=== PATIENT | male | born 1950 | race Caucasian/White ===

== ENCOUNTER → 2018-03-16 | Outpatient (CLI) | payer MEDICARE ==
[~2018-03-16] MED LIST: CHOL500016 PO; EZET10TA18 PO; RAMI10CA36 PO; SIMV10TA3 PO
--- NOTE | 2018-03-16 11:49 | DIREP ---
PROCEDURE:MRI UPPER EXTREM JOINT W O CON RIGHT COMPARISON:None. INDICATIONS:M25.511 PAIN IN RIGHT SHOULDER TECHNIQUE:A variety of imaging planes and parameters were utilized for visualization of suspected pathology. Images were performed without contrast. FINDINGS: ROTATOR CUFF: Focal high-grade tendinosis and bursal sided partial-thickness tearing of supraspinatus , encompassing 75% of tendon thickness. Sfxf-vx-fstrftaq tendinosis of superior most fibers of sub scapularis. Infraspinatus within normal limits. cuff is intact. No muscle atrophy. BICEPS TENDON: Normal intraarticular and extra-articular biceps. LABRUM :Tearing of the superior labrum extending into the anterior equator with high signal also undercutting the insertion of the biceps anchor. Mild to moderate glenohumeral osteoarthritis.. AC JOINT: There is subclavicular spur exerting moderate mass effect on the myotendinous junction of supraspinatus. Advanced acromioclavicular osteoarthrosis. No lateral tilt. Type I acromion. BONES:Normal OTHER:Trace fluid in the subacromial subdeltoid bursa. No loose bodies. CONCLUSION: 1. Advanced tendinosis and bursal sided fraying of leading edge fibers of supraspinatus without full-thickness rotator cuff tear. Partial thickness bursal sided tearing encompasses approximately 75% of the tendon thickness. 2. Wupq-bh-dxjnwbhc subscapularis tendinosis. 3. Tearing of the superior labrum extending into the anterior equator at the bicipital anchor. 4. Trace fluid in subacromial subdeltoid bursa. Dictated by: Talon Tejada DO on 03/16/2018 at 11:42 AM
== END | disposition home or self-care (01) ==
LOC: RAD 09:36
PROVIDERS: ATTEND Nurse Practitioner Family
DX: S43.491A Other sprain of right shoulder joint, initial encounter (principal); M75.81 Other shoulder lesions, right shoulder; M19.011 Primary osteoarthritis, right shoulder; X58.XXXA Exposure to other specified factors, initial encounter; Y93.89 Activity, other specified; Y92.89 Other specified places as the place of occurrence of the external cause; Y99.8 Other external cause status
CPT/HCPCS: 73221-RT

== ENCOUNTER → 2021-05-27 | Outpatient (CLI) | payer MEDICARE ==
[~2021-05-27] MED LIST changes: +AMLO-169 PO; +ASPI-667 PO; +ATOR20TA PO; -EZET10TA18 PO; +EZET10TA20 PO; +LORA10TA75 PO; +MULT-230 PO; +SIMV10TA18 PO; -SIMV10TA3 PO; +[UNRECOGNIZED DRUG - OTHER] PO
[2021-05-27 14:50] LABS: MEAN CORP HGB 31.7 pg (26-34); RED CELL DISTRIBUTION WIDTH 12.6 % (11.5-14.5)
[2021-05-27 15:45] LABS: CARBON DIOXIDE 26.6 mmol/L (20.0-32)
== END | disposition home or self-care (01) ==
LOC: NPLAB 13:45
PROVIDERS: ATTEND Specialist
DX: I11.0 Hypertensive heart disease with heart failure (principal); I50.32 Chronic diastolic (congestive) heart failure; E78.5 Hyperlipidemia, unspecified; E55.9 Vitamin D deficiency, unspecified
CPT/HCPCS: 36415; 80053; 80061; 82306; 84436; 84439; 84443; 84479; 85027; 86140

== ENCOUNTER 2021-06-09 10:50 | Inpatient (IN) | payer MEDICARE ==
[2021-06-04 16:07] VITALS: BP 120/81
[2021-06-04 16:33] LABS: BASOPHIL % 0.5 % (0.0-0.2); EOSINOPHIL # 0.1 10^3/uL (0.0-0.2); EOSINOPHIL % 1.5 % (0.0-5.0); LYMPHOCYTES # 2.25 10^3/uL1 (1.0-4.8); LYMPHOCYTES % 26.5 % (24.0-44.0); MEAN CORP HGB 31.7 pg (26-34); MONOCYTES # 0.6 10^3/uL (0.3-0.8); MONOCYTES % 7.4 % (5.0-12.0); NEUTROPHIL # 5.4 10^3/uL (1.8-7.7); NEUTROPHILS % 63.7 % (41.0-85.0); PLATELET COUNT 290 10^3/uL (150-400); RED CELL DISTRIBUTION WIDTH 12.4 % (11.5-14.5)
[2021-06-04 16:48] LABS: CARBON DIOXIDE 24.5 mmol/L (20.0-32)
[2021-06-04 17:00] LABS: BILIRUBIN,URINE NEGATIVE (NEGATIVE); UROBILINOGEN,URINE 0.2 E.U./dL (0.2)
[2021-06-09] VITALS (16 sets, daily range): BP systolic 92–145; BP diastolic 53–90
[~2021-06-09] VITALS: Ht 170.2 cm; Wt 81.6 kg
[~2021-06-09 10:50] MED LIST changes: +ANCEF ONE; +ATIVAN ONE; +BACTROBAN OINTMENT TP ONE; +CELEBREX PO ONE; +DECADRON IV ONE; +DEXAMETHASONE 10 MG/ML VIAL ONE; +DIPRIVAN 100 ML IV ONE; +DURAMORPH ONE; +EPINEPHrine ONE; +EXPAREL 266 MG/20 ML VIAL IJ ONE; +HESPAN 6%-NS INFUSION BAG 500 ML IV ONE; +LACTATED RINGERS 1,000 ML IV SCH; +NEURONTIN PO ONE; +NS 100ML 100 ML IV ONE; +NS 250ML 250 ML ONE; +NS 3000ML IRR IR ONE; +OFIRMEV IV ONE; +SENSORCAINE 0.5% VIAL ONE; +SENSORCAINE-MPF 0.25% VIAL ONE; +SODIUM CHLORIDE IRR BOTTLE IR ONE; +SUBLIMAZE ONE; +TORADOL ONE; +TRANEXAMIC ACID ONE; +TRANSDERM-SCOP TD ONE; +ULTRAM PO ONE; +VASOPRESSIN ONE; +WATER ONE
[2021-06-09] MEDS ORDERED: ZOFRAN IV PRN (11:00)
[2021-06-09] MEDS ORDERED: TORADOL IV PRN (11:00)
[2021-06-09] MEDS ORDERED: CEPACOL SORE THROAT LOZENGE MM PRN (11:00)
[2021-06-09] MEDS ORDERED: ULTRAM PO PRN (11:00)
[2021-06-09] MEDS ORDERED: CLARITIN PO SCH (11:00)
--- NOTE | 2021-06-09 11:02 | PCM.HP ---
History of Present Illness Hx of Present Illness 70 yo male presents with complaints of consistent left knee pain over the past several years. Progressively worsening for the last 6 years. Conservative treatments for knee pain are no longer effective. Patient currently seeking left knee replacement at this time. Past Medical History PMH-Cardiac: (1) Obstructive sleep apnea ICD Code: G47.33 - Obstructive sleep apnea (adult) (pediatric) SNOMED: 58543538 (2) Hypertension Status: Chronic ICD Code: I10 - Essential (primary) hypertension SNOMED: 28423183 Past Surgical History: (1) History of arthroscopic knee surgery Status: Resolved ICD Code: Z98.890 - Other specified postprocedural states SNOMED: 211393445, 636504980 Past Social History PSH:Alcohol: (1) Occasional alcohol consumption Status: Resolved ICD Code: Z78.9 - Other specified health status SNOMED: 151625163 (2) Non-smoker Status: Resolved ICD Code: Z78.9 - Other specified health status SNOMED: 1026216 Travel History EBOLA RISK:Travel to/contact w: No Review of Systems Constitutional: No: Fever, Chills, Sweats, Weakness, Malaise, Other Eyes: No: Pain, Vision change, Conjunctivae inflammation, Eyelid inflammation, Other, Redness ENT: No: Ear pain, Ear discharge, Nose pain, Nose discharge, Nose congestion, Mouth pain, Mouth swelling, Throat pain, Throat swelling, Other Respiratory: No: Cough, Dry, Shortness of breath, SOB with excertion, Wheezing, Hemoptysis, Pleuritic Pain, Sputum, Wheezing, Other Cardiovascular: No: Chest Pain, Palpitations, Orthopnea, Paroxysmal Noc. Dy spnea, Edema, Lt Headedness, Other Gastrointestinal: No: Nausea, Vomiting, Abdominal Pain, Diarrhea, Constipation, Melena, Hematochezia, Other Genitourinary: No Dysuria, No Frequency, No Incontinence, No Hematuria, No Retention, No Other Musculoskeletal: No: other, neck pain, shoulder pain, arm pain, back pain, hand pain, leg pain, foot pain Skin: No: Rash, Lesions, Jaundice, Bruising, Other Neurological: No: Weakness, Numbness, Incoordination, Change in speech, Confusion, Seizures, Other Allergies: Coded Allergies: No Known Allergies (Unverified , 06/04/21) Scheduled Amlodipine Besylate (Amlodipine Besylate), 1 TAB PO DAILY, (Reported) Aspirin (Aspirin), 1 TAB PO DAILY, (Reported) Atorvastatin 20MG (Lipitor 20MG), 1 TAB PO DAILY, (Reported) Cholecalciferol (Vitamin D3) (Vitamin D3), 1 TAB PO DAILY, (Reported) Ezetimibe (Zetia), 10 MG PO DAILY, (Reported) Loratadine (Claritin), 1 TAB PO QD, (Reported) Multivitamin (Daily Vitamin Formula), 1 TAB PO QD, (Reported) Ramipril 10MG (Altace 10MG), 10 MG PO BID, (Reported) [Osteo Move], 1 TAB PO DAILY24, (Reported) Discontinued Medications Simvastatin (Simvastatin), 10 MG PO DAILY, (Reported) Discontinued Reason: No Longer Taking VTE VTE Risk Total Score: >5 VTE Risk Score VTE Risk: Score 0-1 = Low Risk (Aggressive mobilization; early ambulation; no VTE prophylaxis required) Score 2: Moderate Risk (Intermittent/Pneumatic Compression Device OR Lovenox/Heparin/Coumadin) Score 3-4: High Risk (Intermittent/Pneumatic Compression Device AND Lovenox/Heparin/Coumadin) Score > or =5: Highest Risk (Intermittent/Pneumatic Compression Device AND Lovenox/Heparin/Coumadin) VTE VTE Present on Admission: No Currently receiving anticoagul: No VTE Risk Total Score: >5 Exam Vital Signs Vital Signs Date Time Temp Pulse Resp B/P (MAP) Pulse Ox O2 Delivery O2 Flow Rate FiO2 06/09/21 07:40 Room Air 06/09/21 07:40 97.0 95 16 145/90 (108) General Appearance: No acute distress HEENT: Atraumatic Respiratory: Clear to auscultation Cardiovascular: Regular rate, Normal S1, Normal S2 Abdominal: Normal bowel sounds, Soft Extremities: No clubbing Skin: No rash Neuro: Normal gait Psych/Mental Status: Mental status NL Assessment/Plan Assessment/Plan Assessment/Plan Assessment: Osteoarthritis of left knee Plan: Left total knee arthroscopy Problems: (1) Osteoarthritis of left knee ICD Code: M17.12 - Unilateral primary osteoarthritis, left knee SNOMED: [id number] Patient History: Cerebrovascular disorder 33 FATHER, , Age:69 Congestive heart failure G8 SISTER, , Age:55 Hepatitis C G8 BROTHER Hypertension 33 FATHER, , Age:69 G8 BROTHER, , Age:79 No Family History of: Alzheimer's disease Asthma Chronic obstructive pulmonary disease Diabetes insipidus Diabetes mellitus Parkinson's disease Unknown Problem Qualifiers (1) Hypertension: Hypertension type: primary hypertension Qualified Codes: I10 - Essential (primary) hypertension PRAVEEN JOHNSON RN, NEWSP[employer]ER DELIVERY DRIVER Jun 09, 2021 11:02
--- NOTE | 2021-06-09 11:21 | OPH ---
DATE OF SURGERY: 06/09/2021 DICTATOR NAME: Waldemar Cuevas MD PREOPERATIVE DIAGNOSIS: Osteoarthritis of the left knee. POSTOPERATIVE DIAGNOSIS: Osteoarthritis of the left knee. OPERATIVE PROCEDURE: Left total knee arthroplasty using Medacta Sphere knee, size 4 femur, a size 5 tibia, 12 mm insert. All components were cemented. SURGEON: Waldemar Cuevas MD. ANESTHESIA: Spinal. TOURNIQUET TIME: 57 minutes at 300 mmHg. DRAINS: None. BLOOD LOSS: 400 mL DESCRIPTION OF INDICATIONS: The patient is a 70-year-old male with several year history of pain about the left knee, getting progressively worse. He had pain with household ambulation as well as night pain and giving way about the knee. He tried anti-inflammatories in the past as well as cortisone injections, home exercise program and off the shelf bracing. His x-ray showed that he was obub-cj-vuvv medially with osteophytes about the distal femur, both medially and laterally, also had some narrowing about the patellofemoral joint. The patient basically had stage IV, OA about the left knee, was taken to the operating room for left total knee arthroplasty. DESCRIPTION OF PROCEDURE: The patient was placed in the operating table in supine position after being given a spinal anesthetic by the anesthesia department. The left thigh was padded and a tourniquet was applied. The left lower extremity was sterilely prepped and draped. The patient had the leg exsanguinated with an Esmarch and the tourniquet was inflated to 300 mmHg. Knee was flexed to 90 degrees and an anterior incision was made. The incision was taken through the skin and the subcutaneous tissues. Full thickness flaps were developed medially and laterally. Medial parapatellar arthrotomy was performed. The patella was deviated laterally. The capsule and the MCL were released around the posteromedial corner. The patient had an intramedullary drill hole made about the distal femur. Intramedullary freda with the cutting block attached was placed down the shaft of the femur and the cutting block was positioned against the distal femur. Femoral cutting block was pinned into position and then the distal femoral cut was made. It was set at 9 mm and 6 degrees of valgus. Distal femoral cut was made with the power saw. Tibia was subluxed anteriorly. Medial and lateral meniscectomies were completed and the anterior and posterior cruciate ligaments were excised. The patient had the intramedullary drill hole made about the tibia and the freda was placed down the shaft of the tibia. The cutting block was adjusted for posterior slope, varus valgus depth of cut as well as rotation. Once all the parameters were met, the cutting block was pinned into position. The tibial cut was made. The #2 femoral jig was applied and it measured a size 4. The #3 size 4 femoral cutting block was applied and the anterior and posterior femoral cuts were made as were the chamfer cuts. The tibia was sized and it measured a size 5. The size 5 tibial trial was held into position with pins. The patient then had the central drill hole made and then the cruciate punch was used to stabilize the tibial component. Trial reduction was done with a 5 tibia, 4 femur, initially a 10 and subsequently a 12 mm insert. With the 12 mm insert, the patient's knee had full extension with 120 degrees of flexion. He had good medial and lateral stability and good anterior and posterior stability. There was good tracking of the patella, so the peripheral edges of the patella were cauterized and any osteophytes were removed with a rongeur. The patient had the final medial and lateral femoral drill holes made. The femoral sulcus cut was made. The patient then had the trial components removed. The bone ends were copiously irrigated and dried. The size 5 tibial component was cemented into position. The excess cement was removed with curettes. The size 12 tibial insert was impacted and secured with an anterior screw. The size 4 femoral component was likewise cemented. Once all the excess cement was removed and the cement had hardened, then the tourniquet was released. The bleeding was controlled with cautery. The patient's capsule was closed with a #2 PDS in interrupted yinqff-kf-pxgbs manner. The subcutaneous was closed with a barbed 2-0 Monocryl in a running manner and then the skin was closed with nancy. A suction Prevena dressing was applied, reinforced with 4 x 4s, cast padding, and William wrap. The patient was sent to recovery in stable condition. Waldemar Cuevas MD DR: AVIVA MCBRIDE: [phone] RECEIPT: [id number]
[2021-06-09] MEDS: TYLENOL PO SCH ×3 (13:08→23:44)
[2021-06-09] MEDS: ANCEF 2 GM/D5W 50ML IV SCH ×2 (13:08→22:21)
--- NOTE | 2021-06-09 14:12 | NUR ---
DISCHARGE PLANNING CM VISITED WITH PATIENT ABOUT DISCHARGE PLANS AND NEEDS. PATIENT CURRENTLY LIVES@HOME WITH SPOUSE AND WAS IND WITH ALL ADL PRIOR TO SURGERY. PATIENT DENIES ANY DME EQUIPMENT IN THE HOME. PATIENT CURRENTLY SEE'S Tierney HARRIS NP FOR PCP. PATIENT EDUCATED ON RESOURCES AVAILABLE AND AGREEABLE TO OBTAIN WALKER FROM [facility] AND WOULD LIKE TO HAVE [facility] AFTER DISCHARGE. CM FAXED WALKER REFERRAL AND ORDER TO [phone] AND CONFIRMED WALKER REFERRAL RECEIVED BY RYAN [email or web address]. CM CONTACTED [facility] AND SPOKE WITH VALORIE. VALORIE WILL CHECK PATIENT'S INSURANCE TO SEE IF IN NETWORK AND WILL LET CM KNOW. CM FAXED HH REFERRAL TO [facility] @[phone]. FAX CONFIRMATION CONFIRMED COMPLETE.
[2021-06-09] MEDS: LACTATED RINGERS 1,000 ML IV SCH (16:59)
[2021-06-09 18:00] LABS: MEAN CORP HGB 32.2 pg (26-34); RED CELL DISTRIBUTION WIDTH 12.3 % (11.5-14.5)
[2021-06-09] MEDS: ALTACE PO SCH (22:22)
[2021-06-10 00:03] VITALS: BP 113/76
[2021-06-10] MEDS: LACTATED RINGERS 1,000 ML IV SCH (03:29)
[2021-06-10 03:57] VITALS: BP 128/65
[2021-06-10 04:59] LABS: MEAN CORP HGB 33.2 pg (26-34); RED CELL DISTRIBUTION WIDTH 12.4 % (11.5-14.5)
[2021-06-10] MEDS: ANCEF 2 GM/D5W 50ML IV SCH (06:24)
[2021-06-10] MEDS: TYLENOL PO SCH ×4 (06:25→23:08)
--- NOTE | 2021-06-10 07:00 | NUR ---
Per ER report prior to transfer to [facility] unit, NGT was attempted to be placed x2 unsuccessfully. Patient reports hx of deviated septum and nasal fracture in past years. Once transferred, I attempted once more in [facility] unit unsuccessfully to place NG tube. Attempted to reach television maintenance man physician but was unable to reach at [phone]. Information passed off to day shift RN who states he will communicate with on-coming shift physician on what next steps will be.
[2021-06-10 08:37] VITALS: BP 101/64
--- NOTE | 2021-06-10 08:50 | PRM.PN ---
Subjective Subjective Date: Jun 10, 2021 Time: 08:49 Subjective Pain ok Stood beside bed yesterday VSS NVM+ HGB 11.4 Postop anemia from acute surgical blood loss expected Start PT DC tramaine Patient History: Cerebrovascular disorder 33 FATHER, , Age:69 Congestive heart failure G8 SISTER, , Age:55 Hepatitis C G8 BROTHER Hypertension 33 FATHER, , Age:69 G8 BROTHER, , Age:79 No Family History of: Alzheimer's disease Asthma Chronic obstructive pulmonary disease Diabetes insipidus Diabetes mellitus Parkinson's disease Unknown VTE VTE Risk Total Score: >5 VTE Risk Score VTE Risk: Score 0-1 = Low Risk (Aggressive mobilization; early ambulation; no VTE prophylaxis required) Score 2: Moderate Risk (Intermittent/Pneumatic Compression Device OR Lovenox/Heparin/Coumadin) Score 3-4: High Risk (Intermittent/Pneumatic Compression Device AND Lovenox/Heparin/Coumadin) Score > or =5: Highest Risk (Intermittent/Pneumatic Compression Device AND Lovenox/Heparin/Coumadin) Review of Systems Constitutional: No: Fever, Chills, Sweats, Weakness, Malaise, Other Eyes: No: Pain, Vision change, Conjunctivae inflammation, Eyelid inflammation, Other, Redness ENT: No: Ear pain, Ear discharge, Nose pain, Nose discharge, Nose congestion, Mouth pain, Mouth swelling, Throat pain, Throat swelling, Other Respiratory: No: Cough, Dry, Shortness of breath, SOB with excertion, Wheezing, Hemoptysis, Pleuritic Pain, Sputum, Wheezing, Other Cardiovascular: No: Chest Pain, Palpitations, Orthopnea, Paroxysmal Noc. Dyspnea, Edema, Lt Headedness, Other Gastrointestinal: No: Nausea, Vomiting, Abdominal Pain, Diarrhea, Constipation, Melena, Hematochezia, Other Genitourinary: No Dysuria, No Frequency, No Incontinence, No Hematuria, No Retention, No Other Musculoskeletal: No: other, neck pain, shoulder pain, arm pain, back pain, hand pain, leg pain, foot pain Skin: No: Rash, Lesions, Jaundice, Bruising, Other Neurological: No: Weakness, Numbness, Incoordination, Change in speech, Confusion, Seizures, Other Allergies: Coded Allergies: No Known Allergies (Unverified , 06/04/21) Scheduled Amlodipine Besylate (Amlodipine Besylate), 1 TAB PO DAILY, (Reported) Aspirin (Aspirin), 1 TAB PO DAILY, (Reported) Atorvastatin 20MG (Lipitor 20MG), 1 TAB PO DAILY, (Reported) Cholecalciferol (Vitamin D3) (Vitamin D3), 1 TAB PO DAILY, (Reported) Ezetimibe (Zetia), 10 MG PO DAILY, (Reported) Loratadine (Claritin), 1 TAB PO QD, (Reported) Multivitamin (Daily Vitamin Formula), 1 TAB PO QD, (Reported) Ramipril 10MG (Altace 10MG), 10 MG PO BID, (Reported) [Osteo Move], 1 TAB PO DAILY24, (Reported) Discontinued Medications Simvastatin (Simvastatin), 10 MG PO DAILY, (Reported) Discontinued Reason: No Longer Taking Objective Vitals and I/O Vital Sign - Last 24 Hours 06/09/21 06/09/21 06/09/21 06/09/21 10:48 10:48 10:55 11:00 Temp 97.0 Pulse 87 85 87 Resp 16 16 16 B/P (MAP) 92/55 (67) 97/53 (68) 103/56 (72) Pulse Ox 98 98 98 O2 Delivery Mask Mask Mask O2 Flow Rate 8 8 8 8 06/09/21 06/09/21 06/09/21 06/09/21 11:05 11:10 11:15 11:20 Pulse 86 86 100 100 Resp 16 16 16 16 B/P (MAP) 104/61 (75) 106/59 (75) 120/59 (79) 124/75 (91) Pulse Ox 97 98 95 97 O2 Delivery Mask Mask Mask Mask O2 Flow Rate 8 8 5 5 06/09/21 06/09/21 06/09/21 06/09/21 11:25 11:30 11:35 11:40 Temp 97.2 Pulse 100 98 99 99 Resp 16 16 16 16 B/P (MAP) 132/78 (96) 124/56 (78) 114/72 (86) 105/76 (86) Pulse Ox 94 93 93 93 O2 Delivery Room Air Nasal Canula Nasal Canula Nasal Canula O2 Flow Rate 2 2 2 06/09/21 06/09/21 06/09/21 06/09/21 11:45 11:55 12:48 12:49 Temp 98.2 Pulse 93 99 Resp 16 18 B/P (MAP) 119/77 (91) 129/74 (92) Pulse Ox 92 93 O2 Delivery Nasal Canula Nasal Cannula O2 Flow Rate 2 2 2.00 06/09/21 06/09/21 06/09/21 06/09/21 13:30 15:51 16:50 20:00 Temp 97.9 Pulse 102 110 Resp 19 20 B/P (MAP) 128/78 (95) Pulse Ox 90 94 O2 Delivery Nasal Cannula Nasal Cannula Nasal Cannula O2 Flow Rate 2.00 3.00 2.00 FiO2 32 06/09/21 06/09/21 06/09/21 06/10/21 20:22 20:32 22:22 00:03 Temp 98.0 98.6 Pulse 110 98 99 Resp 20 18 18 B/P (MAP) 115/76 (89) 115/76 113/76 (88) Pulse Ox 94 95 95 O2 Delivery C-Pap O2 Flow Rate 2.00 FiO2 28 06/10/21 06/10/21 03:57 08:37 Temp 99.2 98.4 Pulse 95 69 Resp 18 18 B/P (MAP) 128/65 (86) 101/64 (76) Pulse Ox 96 97 Intake and Output 06/10/21 07:00 Intake Total 6900 ml Output Total 1650 ml Balance 5250 ml General: No acute distress HEENT: Atraumatic Lungs: Clear to auscultation Heart: Regular rate, Normal S1, Normal S2 Abdomen: Normal bowel sounds, Soft Extremities: No clubbing Neuro: Normal gait Psych/Mental Status: Mental status NL All Results(Lab/Rad) Laboratory Tests Test 06/09/21 17:53 06/10/21 04:37 White Blood Count 10.6 10^3/uL 12.6 10^3/uL Red Blood Count 4.16 10^6/uL 3.43 10^6/uL Hemoglobin 13.4 g/dL 11.4 g/dL Hematocrit 40.3 % 33.2 % Mean Corpuscular Volume 96.9 fL 96.8 fL Mean Corpuscular Hemoglobin 32.2 pg 33.2 pg Mean Corpuscular Hemoglobin Concent 33.3 g/dL 34.3 g/dL Red Cell Distribution Width 12.3 % 12.4 % Platelet Count 242 10^3/uL 229 10^3/uL Mean Platelet Volume 8.4 fL 8.5 fL Current Medications Medications (Trade) Dose Ordered Sig/Pradeep Route PRN Reason Start Time Stop Time Status Last Admin Dose Admin Mupirocin (Bactroban Ointment) 1 gm OT ONCE TP 06/09/21 06:30 06/09/21 13:24 DC 06/09/21 07:55 Celecoxib (Celebrex) 400 mg OT ONCE PO 06/09/21 06:30 06/09/21 13:24 DC 06/09/21 08:10 Gabapentin (Neurontin) 600 mg OT ONCE PO 06/09/21 06:30 06/09/21 13:24 DC 06/09/21 08:10 Tramadol HCl (Ultram) 100 mg OT ONCE PO 06/09/21 06:30 06/09/21 13:24 DC 06/09/21 08:10 Acetaminophen (Ofirmev) 500 mg OT ONCE IV 06/09/21 06:30 06/09/21 13:24 DC Cefazolin Sodium (Ancef) 1 gm STK-MED ONCE .ROUTE 06/06/21 11:58 06/06/21 11:58 DC Sodium Chloride 100 ml @ ud STK-MED ONCE IV 06/06/21 11:58 06/06/21 11:58 DC Bupivacaine HCl (Sensorcaine-Mpf 0.25% Vial) 2.5 mg STK-MED ONCE .ROUTE 06/09/21 07:08 06/09/21 07:08 DC Epinephrine HCl (EPINEPHrine) 1 mg STK-MED ONCE .ROUTE 06/09/21 07:08 06/09/21 07:08 DC Bupivacaine HCl (Sensorcaine 0.5% Vial) 5 mg STK-MED ONCE .ROUTE 06/09/21 07:08 06/09/21 07:09 DC Lorazepam (Ativan) 2 mg STK-MED ONCE .ROUTE 06/09/21 07:09 06/09/21 07:09 DC Fentanyl Citrate (Sublimaze) 50 mcg STK-MED ONCE .ROUTE 06/09/21 07:09 06/09/21 07:10 DC Sodium Chloride (Sodium Chloride Irr Bottle) 1,000 ml STK-MED ONCE IR 06/09/21 07:29 06/09/21 07:29 DC Sterile Water (Water) 1,000 ml STK-MED ONCE .ROUTE 06/09/21 07:29 06/09/21 07:29 DC Sodium Chloride 250 ml @ ud STK-MED ONCE .ROUTE 06/09/21 07:29 06/09/21 07:29 DC Sodium Chloride (NS 3000ml Irr) 3,000 ml STK-MED ONCE IR 06/09/21 07:29 06/09/21 07:29 DC Hetastarch/Sodium Chloride 500 ml @ ud STK-MED ONCE IV 06/09/21 07:34 06/09/21 07:34 DC Propofol 100 ml @ ud STK-MED ONCE IV 06/09/21 07:34 06/09/21 07:34 DC Ketorolac Tromethamine (Toradol) 30 mg STK-MED ONCE .ROUTE 06/09/21 07:34 06/09/21 07:34 DC Tranexamic Acid (Tranexamic Acid) 1,000 mg STK-MED ONCE .ROUTE 06/09/21 07:35 06/09/21 07:35 DC Vasopressin (Vasopressin) 20 unit STK-MED ONCE .ROUTE 06/09/21 07:35 06/09/21 07:35 DC Morphine Sulfate (Duramorph) 10 mg STK-MED ONCE .ROUTE 06/09/21 07:36 06/09/21 07:37 DC Scopolamine (Transderm-Scop) 1 each STK-MED ONCE TD 06/09/21 07:52 06/09/21 07:53 DC Acetaminophen (Ofirmev) 1,000 mg OT ONCE IV 06/09/21 08:00 06/09/21 13:24 DC 06/09/21 07:55 Scopolamine (Transderm-Scop) 1 each OT ONCE TD 06/09/21 08:00 06/09/21 13:24 DC 06/09/21 08:00 Tramadol HCl (Ultram) 50 mg Q6H PRN PO PAIN 1 - 3 06/09/21 11:00 07/09/21 10:59 Rivaroxaban (Xarelto) 10 mg DAILY PO 06/10/21 09:00 07/10/21 08:59 Docusate Sodium (Colace) 100 mg DAILY PO 06/10/21 09:00 07/10/21 08:59 Throat Lozenges (Cepacol Sore Throat Lozenge) 1 each PRN PRN MM SORE THROAT 06/09/21 11:00 07/09/21 10:59 06/09/21 23:48 Famotidine (Pepcid) 20 mg DAILY PO 06/10/21 09:00 07/10/21 08:59 Cefazolin Sodium/ Dextrose (Ancef 2 Gm/D5W 50ml) 2 gm Q8 IV 06/09/21 14:00 06/10/21 06:01 DC 06/10/21 06:24 Acetaminophen (Tylenol) 1,000 mg Q6HR PO 06/09/21 12:00 07/09/21 11:59 06/10/21 06:25 Ketorolac Tromethamine (Toradol) 15 mg Q6H PRN IV PAIN 4 - 6 06/09/21 11:00 07/09/21 10:59 Ondansetron HCl (Zofran) 4 mg Q4H PRN IV NAUSEA / VOMITING 06/09/21 11:00 07/09/21 10:59 Tramadol HCl (Ultram) 100 mg Q4HR PRN PO PAIN 7 - 10 06/09/21 11:00 07/09/21 10:59 Amlodipine Besylate (Norvasc) 5 mg DAILY PO 06/10/21 09:00 07/10/21 08:59 Atorvastatin Calcium (Lipitor) 20 mg DAILY PO 06/10/21 09:00 07/10/21 08:59 Cholecalciferol (Vitamin D) 5,000 unit DAILY PO 06/10/21 09:00 07/10/21 08:59 EZETIMIBE (Zetia) 10 mg DAILY PO 06/10/21 09:00 07/10/21 08:59 Loratadine (Claritin) 10 mg QD PO 06/09/21 11:00 06/09/21 13:24 DC 06/09/21 11:00 Ramipril (Altace) 10 mg BID PO 06/09/21 21:00 07/09/21 20:59 06/09/21 22:22 Loratadine (Claritin) 10 mg DAILY PO 06/10/21 09:00 07/09/21 10:59 Course Sepsis Screening Results: Posi: NEGATIVE Sepsis Qualifier/Stage: NO DEFINITE RISK Vitals & review Data Vital Sign - Last 24 Hours 106/09/21 06/09/21 06/09/21 10:48 10:48 10:55 11:00 Temp 97.0 Pulse 87 85 87 Resp 16 16 16 B/P (MAP) 92/55 (67) 97/53 (68) 103/56 (72) Pulse Ox 98 98 98 O2 Delivery Mask Mask Mask O2 Flow Rate 8 8 8 8 06/09/21 06/09/21 06/09/21 06/09/21 11:05 11:10 11:15 11:20 Pulse 86 86 100 100 Resp 16 16 16 16 B/P (MAP) 104/61 (75) 106/59 (75) 120/59 (79) 124/75 (91) Pulse Ox 97 98 95 97 O2 Delivery Mask Mask Mask Mask O2 Flow Rate 8 8 5 5 06/09/21 06/09/21 06/09/21 06/09/21 11:25 11:30 11:35 11:40 Temp 97.2 Pulse 100 98 99 99 Resp 16 16 16 16 B/P (MAP) 132/78 (96) 124/56 (78) 114/72 (86) 105/76 (86) Pulse Ox 94 93 93 93 O2 Delivery Room Air Nasal Canula Nasal Canula Nasal Canula O2 Flow Rate 2 2 2 06/09/21 06/09/21 06/09/21 06/09/21 11:45 11:55 12:48 12:49 Temp 98.2 Pulse 93 99 Resp 16 18 B/P (MAP) 119/77 (91) 129/74 (92) Pulse Ox 92 93 O2 Delivery Nasal Canula Nasal Cannula O2 Flow Rate 2 2 2.00 06/09/21 06/09/21 06/09/21 06/09/21 13:30 15:51 16:50 20:00 Temp 97.9 Pulse 102 110 Resp 19 20 B/P (MAP) 128/78 (95) Pulse Ox 90 94 O2 Delivery Nasal Cannula Nasal Cannula Nasal Cannula O2 Flow Rate 2.00 3.00 2.00 FiO2 32 06/09/21 06/09/21 06/09/21 06/10/21 20:22 20:32 22:22 00:03 Temp 98.0 98.6 Pulse 110 98 99 Resp 20 18 18 B/P (MAP) 115/76 (89) 115/76 113/76 (88) Pulse Ox 94 95 95 O2 Delivery C-Pap O2 Flow Rate 2.00 FiO2 28 06/10/21 06/10/21 03:57 08:37 Temp 99.2 98.4 Pulse 95 69 Resp 18 18 B/P (MAP) 128/65 (86) 101/64 (76) Pulse Ox 96 97 Intake and Output 06/10/21 07:00 Intake Total 6900 ml Output Total 1650 ml Balance 5250 ml Laboratory Tests Test 06/09/21 17:53 06/10/21 04:37 White Blood Count 10.6 10^3/uL 12.6 10^3/uL Red Blood Count 4.16 10^6/uL 3.43 10^6/uL Hemoglobin 13.4 g/dL 11.4 g/dL Hematocrit 40.3 % 33.2 % Mean Corpuscular Volume 96.9 fL 96.8 fL Mean Corpuscular Hemoglobin 32.2 pg 33.2 pg Mean Corpuscular Hemoglobin Concent 33.3 g/dL 34.3 g/dL Red Cell Distribution Width 12.3 % 12.4 % Platelet Count 242 10^3/uL 229 10^3/uL Mean Platelet Volume 8.4 fL 8.5 fL Current Medications Medications (Trade) Dose Ordered Sig/Pradeep PRN Reason Start Time Stop Time Status Last Admin Acetaminophen (Tylenol) 1,000 mg Q6HR 06/09/21 12:00 07/09/21 11:59 06/10/21 06:25 Amlodipine Besylate (Norvasc) 5 mg DAILY 06/10/21 09:00 07/10/21 08:59 Atorvastatin Calcium (Lipitor) 20 mg DAILY 06/10/21 09:00 07/10/21 08:59 Cholecalciferol (Vitamin D) 5,000 unit DAILY 06/10/21 09:00 07/10/21 08:59 Docusate Sodium (Colace) 100 mg DAILY 06/10/21 09:00 07/10/21 08:59 EZETIMIBE (Zetia) 10 mg DAILY 06/10/21 09:00 07/10/21 08:59 Famotidine (Pepcid) 20 mg DAILY 06/10/21 09:00 07/10/21 08:59 Ketorolac Tromethamine (Toradol) 15 mg Q6H PRN PAIN 4 - 6 06/09/21 11:00 07/09/21 10:59 Loratadine (Claritin) 10 mg DAILY 06/10/21 09:00 07/09/21 10:59 Ondansetron HCl (Zofran) 4 mg Q4H PRN NAUSEA / VOMITING 06/09/21 11:00 07/09/21 10:59 Ramipril (Altace) 10 mg BID 06/09/21 21:00 07/09/21 20:59 06/09/21 22:22 Rivaroxaban (Xarelto) 10 mg DAILY 06/10/21 09:00 07/10/21 08:59 Throat Lozenges (Cepacol Sore Throat Lozenge) 1 each PRN PRN SORE THROAT 06/09/21 11:00 07/09/21 10:59 06/09/21 23:48 Tramadol HCl (Ultram) 50 mg Q6H PRN PAIN 1 - 3 06/09/21 11:00 07/09/21 10:59 Tramadol HCl (Ultram) 100 mg Q4HR PRN PAIN 7 - 10 06/09/21 11:00 07/09/21 10:59 LEVEL 1 SEPSIS INFECTION CRITE: ABX Therapy, Abdominal Pain Hematologic Evidence: None/Not assessed Hepatic Evidence: None/Not assessed Neurological Evidence: None/Not assessed Respiratory Evidence: None/Not assessed Renal Evidence: None/Not assessed O2 Sat by Pulse Oximetry: 97 Oxygen Flow Rate: 2.00 Assessment/Plan Assessment/Plan Assessment/Plan Assessment: Osteoarthritis of left knee Plan: Left total knee arthroscopy MUKUND STUBBS MD Jun 10, 2021 08:50
[2021-06-10] MEDS: PEPCID PO SCH (10:18)
[2021-06-10] MEDS: CLARITIN PO SCH (10:18)
[2021-06-10] MEDS: ZETIA PO SCH (10:18)
[2021-06-10] MEDS: NORVASC PO SCH (10:18)
[2021-06-10] MEDS: COLACE PO SCH (10:18)
[2021-06-10] MEDS: XARELTO PO SCH (10:18)
[2021-06-10] MEDS: VITAMIN D PO SCH (10:18)
[2021-06-10] MEDS: LIPITOR PO SCH (10:18)
[2021-06-10] MEDS: ALTACE PO SCH ×2 (10:19→21:35)
--- NOTE | 2021-06-10 12:43 | NUR ---
DISCHARGE PLANNING HH UPDATE - [facility] CM RECEIVED PHONE CALL FROM [facility] AND THEY ARE NOT IN NETWORK WITH PATIENT'S INSURANCE. CM CONTACTED [facility] AND SPOKE WITH ESTEFANY VERMA AND THEY ARE IN NETWORK WITH PATIENT'S INSURANCE. CM FAXED INITIAL CLINICALS TO [facility]@[phone]. FAX CONFIRMATION CONFIRMED COMPLETE. CM NOTIFIED MR HEAD OF CHANGE IN HOME HEALTH PROVIDER TO [facility] DUE TO IN NETWORK WITH PATIENT'S INSURANCE. PATIENT AGREEABLE. Addendum: 06/11/21 at 1009 by Tiff Claudio RN,Case Managemen RN CM FAXED DISCHARGE CLINICALS TO [facility]@[phone] AND ORDER. FAX CONFIRMATION CONFIRMED COMPLETE.
[2021-06-10] MEDS ORDERED: BISAC-EVAC RC ONE (13:12)
[2021-06-10 13:29] VITALS: BP 115/73
[2021-06-10] MEDS: ULTRAM PO PRN (16:45)
[2021-06-10 19:54] VITALS: BP 120/76
[2021-06-10 23:10] VITALS: BP 127/74
[2021-06-11] MEDS: TYLENOL PO SCH (05:02)
[2021-06-11 05:07] VITALS: BP 120/76
[2021-06-11 05:22] LABS: MEAN CORP HGB 32.5 pg (26-34); RED CELL DISTRIBUTION WIDTH 12.8 % (11.5-14.5)
--- NOTE | 2021-06-11 09:12 | PRM.PN ---
Subjective Subjective Date: Jun 11, 2021 Time: 09:11 Subjective Pain ok with ultram VSS Independent with PT and OT HGB 12,3 Will dc Appt 5 days Patient History: Cerebrovascular disorder 33 FATHER, , Age:69 Congestive heart failure G8 SISTER, , Age:55 Hepatitis C G8 BROTHER Hypertension 33 FATHER, , Age:69 G8 BROTHER, , Age:79 No Family History of: Alzheimer's disease Asthma Chronic obstructive pulmonary disease Diabetes insipidus Diabetes mellitus Parkinson's disease Unknown VTE VTE Risk Total Score: >5 VTE Risk Score VTE Risk: Score 0-1 = Low Risk (Aggressive mobilization; early ambulation; no VTE prophylaxis required) Score 2: Moderate Risk (Intermittent/Pneumatic Compression Device OR Lovenox/Heparin/Coumadin) Score 3-4: High Risk (Intermittent/Pneumatic Compression Device AND Lovenox/Heparin/Coumadin) Score > or =5: Highest Risk (Intermittent/Pneumatic Compression Device AND Lovenox/Heparin/Coumadin) Review of Systems Constitutional: No: Fever, Chills, Sweats, Weakness, Malaise, Other Eyes: No: Pain, Vision change, Conjunctivae inflammation, Eyelid inflammation, Other, Redness ENT: No: Ear pain, Ear discharge, Nose pain, Nose discharge, Nose congestion, Mouth pain, Mouth swelling, Throat pain, Throat swelling, Other Respiratory: No: Cough, Dry, Shortness of breath, SOB with excertion, Wheezing, Hemoptysis, Pleuritic Pain, Sputum, Wheezing, Other Cardiovascular: No: Chest Pain, Palpitations, Orthopnea, Paroxysmal Noc. Dyspnea, Edema, Lt Headedness, Other Gastrointestinal: No: Nausea, Vomiting, Abdominal Pain, Diarrhea, Constipation, Melena, Hematochezia, Other Genitourinary: No Dysuria, No Frequency, No Incontinence, No Hematuria, No Retention, No Other Musculoskeletal: No: other, neck pain, shoulder pain, arm pain, back pain, hand pain, leg pain, foot pain Skin: No: Rash, Lesions, Jaundice, Bruising, Other Neurological: No: Weakness, Numbness, Incoordination, Change in speech, Confusion, Seizures, Other Allergies: Coded Allergies: No Known Allergies (Unverified , 06/04/21) Scheduled Amlodipine Besylate (Amlodipine Besylate), 1 TAB PO DAILY, (Reported) Aspirin (Aspirin), 1 TAB PO DAILY, (Reported) Atorvastatin 20MG (Lipitor 20MG), 1 TAB PO DAILY, (Reported) Cholecalciferol (Vitamin D3) (Vitamin D3), 1 TAB PO DAILY, (Reported) Ezetimibe (Zetia), 10 MG PO DAILY, (Reported) Loratadine (Claritin), 1 TAB PO QD, (Reported) Multivitamin (Daily Vitamin Formula), 1 TAB PO QD, (Reported) Ramipril 10MG (Altace 10MG), 10 MG PO BID, (Reported) [Osteo Move], 1 TAB PO DAILY24, (Reported) Discontinued Medications Simvastatin (Simvastatin), 10 MG PO DAILY, (Reported) Discontinued Reason: No Longer Taking Objective Vitals and I/O Vital Sign - Last 24 Hours 06/10/21 06/10/21 06/10/21 06/10/21 10:18 13:29 16:29 19:54 Temp 98.1 98.4 Pulse 69 53 93 Resp 18 16 B/P (MAP) 101/64 115/73 (87) 120/76 (91) Pulse Ox 97 96 O2 Delivery Room Air 06/10/21 06/10/21 06/10/21 06/10/21 20:16 20:34 21:35 23:10 Temp 97.0 Pulse 93 100 Resp 16 16 B/P (MAP) 120/76 127/74 (91) Pulse Ox 93 95 O2 Delivery Room Air Room Air FiO2 21 06/11/21 06/11/21 05:07 07:22 Temp 98.5 Pulse 93 Resp 16 B/P (MAP) 120/76 (91) Pulse Ox 94 O2 Delivery C Pap Room Air Intake and Output 06/11/21 06:59 Intake Total 598 ml Balance 598 ml General: No acute distress HEENT: Atraumatic Lungs: Clear to auscultation Heart: Regular rate, Normal S1, Normal S2 Abdomen: Normal bowel sounds, Soft Extremities: No clubbing Neuro: Normal gait Psych/Mental Status: Mental status NL All Results(Lab/Rad) Laboratory Tests Test 06/09/21 17:53 06/10/21 04:37 White Blood Count 10.6 10^3/uL 12.6 10^3/uL Red Blood Count 4.16 10^6/uL 3.43 10^6/uL Hemoglobin 13.4 g/dL 11.4 g/dL Hematocrit 40.3 % 33.2 % Mean Corpuscular Volume 96.9 fL 96.8 fL Mean Corpuscular Hemoglobin 32.2 pg 33.2 pg Mean Corpuscular Hemoglobin Concent 33.3 g/dL 34.3 g/dL Red Cell Distribution Width 12.3 % 12.4 % Platelet Count 242 10^3/uL 229 10^3/uL Mean Platelet Volume 8.4 fL 8.5 fL Current Medications Medications (Trade) Dose Ordered Sig/Pradeep Route PRN Reason Start Time Stop Time Status Last Admin Dose Admin Mupirocin (Bactroban Ointment) 1 gm OT ONCE TP 06/09/21 06:30 06/09/21 13:24 DC 06/09/21 07:55 Celecoxib (Celebrex) 400 mg OT ONCE PO 06/09/21 06:30 06/09/21 13:24 DC 06/09/21 08:10 Gabapentin (Neurontin) 600 mg OT ONCE PO 06/09/21 06:30 06/09/21 13:24 DC 06/09/21 08:10 Tramadol HCl (Ultram) 100 mg OT ONCE PO 06/09/21 06:30 06/09/21 13:24 DC 06/09/21 08:10 Acetaminophen (Ofirmev) 500 mg OT ONCE IV 06/09/21 06:30 06/09/21 13:24 DC Cefazolin Sodium (Ancef) 1 gm STK-MED ONCE .ROUTE 06/06/21 11:58 06/06/21 11:58 DC Sodium Chloride 100 ml @ ud STK-MED ONCE IV 06/06/21 11:58 06/06/21 11:58 DC Bupivacaine HCl (Sensorcaine-Mpf 0.25% Vial) 2.5 mg STK-MED ONCE .ROUTE 06/09/21 07:08 06/09/21 07:08 DC Epinephrine HCl (EPINEPHrine) 1 mg STK-MED ONCE .ROUTE 06/09/21 07:08 06/09/21 07:08 DC Bupivacaine HCl (Sensorcaine 0.5% Vial) 5 mg STK-MED ONCE .ROUTE 06/09/21 07:08 06/09/21 07:09 DC Lorazepam (Ativan) 2 mg STK-MED ONCE .ROUTE 06/09/21 07:09 06/09/21 07:09 DC Fentanyl Citrate (Sublimaze) 50 mcg STK-MED ONCE .ROUTE 06/09/21 07:09 06/09/21 07:10 DC Sodium Chloride (Sodium Chloride Irr Bottle) 1,000 ml STK-MED ONCE IR 06/09/21 07:29 06/09/21 07:29 DC Sterile Water (Water) 1,000 ml STK-MED ONCE .ROUTE 06/09/21 07:29 06/09/21 07:29 DC Sodium Chloride 250 ml @ ud STK-MED ONCE .ROUTE 06/09/21 07:29 06/09/21 07:29 DC Sodium Chloride (NS 3000ml Irr) 3,000 ml STK-MED ONCE IR 06/09/21 07:29 06/09/21 07:29 DC Hetastarch/Sodium Chloride 500 ml @ ud STK-MED ONCE IV 06/09/21 07:34 06/09/21 07:34 DC Propofol 100 ml @ ud STK-MED ONCE IV 06/09/21 07:34 06/09/21 07:34 DC Ketorolac Tromethamine (Toradol) 30 mg STK-MED ONCE .ROUTE 06/09/21 07:34 06/09/21 07:34 DC Tranexamic Acid (Tranexamic Acid) 1,000 mg STK-MED ONCE .ROUTE 06/09/21 07:35 06/09/21 07:35 DC Vasopressin (Vasopressin) 20 unit STK-MED ONCE .ROUTE 06/09/21 07:35 06/09/21 07:35 DC Morphine Sulfate (Duramorph) 10 mg STK-MED ONCE .ROUTE 06/09/21 07:36 06/09/21 07:37 DC Scopolamine (Transderm-Scop) 1 each STK-MED ONCE TD 06/09/21 07:52 06/09/21 07:53 DC Acetaminophen (Ofirmev) 1,000 mg OT ONCE IV 06/09/21 08:00 06/09/21 13:24 DC 06/09/21 07:55 Scopolamine (Transderm-Scop) 1 each OT ONCE TD 06/09/21 08:00 06/09/21 13:24 DC 06/09/21 08:00 Tramadol HCl (Ultram) 50 mg Q6H PRN PO PAIN 1 - 3 06/09/21 11:00 07/09/21 10:59 Rivaroxaban (Xarelto) 10 mg DAILY PO 06/10/21 09:00 07/10/21 08:59 Docusate Sodium (Colace) 100 mg DAILY PO 06/10/21 09:00 07/10/21 08:59 Throat Lozenges (Cepacol Sore Throat Lozenge) 1 each PRN PRN MM SORE THROAT 06/09/21 11:00 07/09/21 10:59 06/09/21 23:48 Famotidine (Pepcid) 20 mg DAILY PO 06/10/21 09:00 07/10/21 08:59 Cefazolin Sodium/ Dextrose (Ancef 2 Gm/D5W 50ml) 2 gm Q8 IV 06/09/21 14:00 06/10/21 06:01 DC 06/10/21 06:24 Acetaminophen (Tylenol) 1,000 mg Q6HR PO 06/09/21 12:00 07/09/21 11:59 06/10/21 06:25 Ketorolac Tromethamine (Toradol) 15 mg Q6H PRN IV PAIN 4 - 6 06/09/21 11:00 07/09/21 10:59 Ondansetron HCl (Zofran) 4 mg Q4H PRN IV NAUSEA / VOMITING 06/09/21 11:00 07/09/21 10:59 Tramadol HCl (Ultram) 100 mg Q4HR PRN PO PAIN 7 - 10 06/09/21 11:00 07/09/21 10:59 Amlodipine Besylate (Norvasc) 5 mg DAILY PO 06/10/21 09:00 07/10/21 08:59 Atorvastatin Calcium (Lipitor) 20 mg DAILY PO 06/10/21 09:00 07/10/21 08:59 Cholecalciferol (Vitamin D) 5,000 unit DAILY PO 06/10/21 09:00 07/10/21 08:59 EZETIMIBE (Zetia) 10 mg DAILY PO 06/10/21 09:00 07/10/21 08:59 Loratadine (Claritin) 10 mg QD PO 06/09/21 11:00 06/09/21 13:24 DC 06/09/21 11:00 Ramipril (Altace) 10 mg BID PO 06/09/21 21:00 07/09/21 20:59 06/09/21 22:22 Loratadine (Claritin) 10 mg DAILY PO 06/10/21 09:00 07/09/21 10:59 Course Sepsis Screening Results: Posi: NEGATIVE Sepsis Qualifier/Stage: NO DEFINITE RISK Vitals & review Data Vital Sign - Last 24 Hours 06/09/21 06/09/21 06/09/21 06/09/21 10:48 10:48 10:55 11:00 Temp 97.0 Pulse 87 85 87 Resp 16 16 16 B/P (MAP) 92/55 (67) 97/53 (68) 103/56 (72) Pulse Ox 98 98 98 O2 Delivery Mask Mask Mask O2 Flow Rate 8 8 8 8 06/09/21 06/09/21 06/09/21 06/09/21 11:05 11:10 11:15 11:20 Pulse 86 86 100 100 Resp 16 16 16 16 B/P (MAP) 104/61 (75) 106/59 (75) 120/59 (79) 124/75 (91) Pulse Ox 97 98 95 97 O2 Delivery Mask Mask Mask Mask O2 Flow Rate 8 8 5 5 06/09/21 06/09/21 06/09/21 06/09/21 11:25 11:30 11:35 11:40 Temp 97.2 Pulse 100 98 99 99 Resp 16 16 16 16 B/P (MAP) 132/78 (96) 124/56 (78) 114/72 (86) 105/76 (86) Pulse Ox 94 93 93 93 O2 Delivery Room Air Nasal Canula Nasal Canula Nasal Canula O2 Flow Rate 2 2 2 06/09/21 06/09/21 06/09/21 06/09/21 11:45 11:55 12:48 12:49 Temp 98.2 Pulse 93 99 Resp 16 18 B/P (MAP) 119/77 (91) 129/74 (92) Pulse Ox 92 93 O2 Delivery Nasal Canula Nasal Cannula O2 Flow Rate 2 2 2.00 06/09/21 06/09/21 06/09/21 06/09/21 13:30 15:51 16:50 20:00 Temp 97.9 Pulse 102 110 Resp 19 20 B/P (MAP) 128/78 (95) Pulse Ox 90 94 O2 Delivery Nasal Cannula Nasal Cannula Nasal Cannula O2 Flow Rate 2.00 3.00 2.00 FiO2 32 06/09/21 06/09/21 06/09/21 06/10/21 20:22 20:32 22:22 00:03 Temp 98.0 98.6 Pulse 110 98 99 Resp 20 18 18 B/P (MAP) 115/76 (89) 115/76 113/76 (88) Pulse Ox 94 95 95 O2 Delivery C-Pap O2 Flow Rate 2.00 FiO2 28 06/10/21 06/10/21 03:57 08:37 Temp 99.2 98.4 Pulse 95 69 Resp 18 18 B/P (MAP) 128/65 (86) 101/64 (76) Pulse Ox 96 97 Intake and Output 06/10/21 07:00 Intake Total 6900 ml Output Total 1650 ml Balance 5250 ml Laboratory Tests Test 06/09/21 17:53 06/10/21 04:37 White Blood Count 10.6 10^3/uL 12.6 10^3/uL Red Blood Count 4.16 10^6/uL 3.43 10^6/uL Hemoglobin 13.4 g/dL 11.4 g/dL Hematocrit 40.3 % 33.2 % Mean Corpuscular Volume 96.9 fL 96.8 fL Mean Corpuscular Hemoglobin 32.2 pg 33.2 pg Mean Corpuscular Hemoglobin Concent 33.3 g/dL 34.3 g/dL Red Cell Distribution Width 12.3 % 12.4 % Platelet Count 242 10^3/uL 229 10^3/uL Mean Platelet Volume 8.4 fL 8.5 fL Current Medications Medications (Trade) Dose Ordered Sig/Pradeep PRN Reason Start Time Stop Time Status Last Admin Acetaminophen (Tylenol) 1,000 mg Q6HR 06/09/21 12:00 07/09/21 11:59 06/10/21 06:25 Amlodipine Besylate (Norvasc) 5 mg DAILY 06/10/21 09:00 07/10/21 08:59 Atorvastatin Calcium (Lipitor) 20 mg DAILY 06/10/21 09:00 07/10/21 08:59 Cholecalciferol (Vitamin D) 5,000 unit DAILY 06/10/21 09:00 07/10/21 08:59 Docusate Sodium (Colace) 100 mg DAILY 06/10/21 09:00 07/10/21 08:59 EZETIMIBE (Zetia) 10 mg DAILY 06/10/21 09:00 07/10/21 08:59 Famotidine (Pepcid) 20 mg DAILY 06/10/21 09:00 07/10/21 08:59 Ketorolac Tromethamine (Toradol) 15 mg Q6H PRN PAIN 4 - 6 06/09/21 11:00 07/09/21 10:59 Loratadine (Claritin) 10 mg DAILY 06/10/21 09:00 07/09/21 10:59 Ondansetron HCl (Zofran) 4 mg Q4H PRN NAUSEA / VOMITING 06/09/21 11:00 07/09/21 10:59 Ramipril (Altace) 10 mg BID 06/09/21 21:00 07/09/21 20:59 06/09/21 22:22 Rivaroxaban (Xarelto) 10 mg DAILY 06/10/21 09:00 07/10/21 08:59 Throat Lozenges (Cepacol Sore Throat Lozenge) 1 each PRN PRN SORE THROAT 06/09/21 11:00 07/09/21 10:59 06/09/21 23:48 Tramadol HCl (Ultram) 50 mg Q6H PRN PAIN 1 - 3 06/09/21 11:00 07/09/21 10:59 Tramadol HCl (Ultram) 100 mg Q4HR PRN PAIN 7 - 10 06/09/21 11:00 07/09/21 10:59 LEVEL 1 SEPSIS INFECTION CRITE: Recent Invasive Procedure Cardiovascular Evidence: Not Assessed or None Hematologic Evidence: None/Not assessed Hepatic Evidence: None/Not assessed Metabolic Evidence: None/Not assessed Neurological Evidence: None/Not assessed Respiratory Evidence: None/Not assessed Renal Evidence: None/Not assessed O2 Sat by Pulse Oximetry: 94 Oxygen Flow Rate: 3.00 Assessment/Plan Assessment/Plan Assessment/Plan Assessment: Osteoarthritis of left knee Plan: Left total knee arthroscopy MUKUND STUBBS MD Jun 11, 2021 09:12
[2021-06-11] MEDS ORDERED: TRAM-47 PO (09:14)
[2021-06-11] MEDS: NORVASC PO SCH (09:44)
[2021-06-11] MEDS: PEPCID PO SCH (09:44)
[2021-06-11] MEDS: ALTACE PO SCH (09:44)
[2021-06-11] MEDS: ZETIA PO SCH (09:44)
[2021-06-11] MEDS: VITAMIN D PO SCH (09:44)
[2021-06-11] MEDS: XARELTO PO SCH (09:44)
[2021-06-11] MEDS: COLACE PO SCH (09:44)
[2021-06-11] MEDS: LIPITOR PO SCH (09:44)
[2021-06-11] MEDS: CLARITIN PO SCH (09:44)
[2021-06-11] MEDS: ULTRAM PO PRN (09:45)
--- NOTE | 2021-06-11 10:00 | DSH ---
DATE OF DISCHARGE: 06/11/2021 DICTATOR NAME: Waldemar Cuevas MD ADMISSION DIAGNOSES: Include osteoarthritis of the left knee, hypertension, sleep apnea. DISCHARGE DIAGNOSES: Include osteoarthritis of the left knee, hypertension, sleep apnea, postoperative anemia secondary to acute surgical blood loss expected. OPERATIVE PROCEDURE DATE: 06/09/2021. PROCEDURE PERFORMED: Left total knee arthroplasty. CONSULTATIONS: None. COMPLICATIONS: None. SUMMARY OF ADMISSION: The patient is a 70-year-old male with stage IV osteoarthritis about the left knee. Please refer to his history and physical for indications for surgery. Basically, the patient failed conservative treatment and had disabling left knee pain. He was taken to the operating room on 06/09/2021, where he underwent left total knee arthroplasty. The patient has done well postoperatively. He has been on a regular diet. The patient on discharge can transfer independently and ambulate at least 100 feet with his walker. Pain is well controlled with tramadol. The patient has been on Xarelto for DVT prophylaxis as well as SCDs and early ambulation. The patient's hemoglobin dropped to a low of 11.4, felt to be secondary to acute surgical blood loss; however, on discharge, his hemoglobin is up to 12.4 and his vital signs are stable. The patient will be discharged today on 06/11/2021. We instructed to leave his dressing intact. He was given a prescription for tramadol for the pain. He will use aspirin 81 mg twice a day for a month for DVT prophylaxis. He will do home health physical therapy and see me in the office in 5 days. He can use his walker and weightbear as tolerated. Waldemar Cuevas MD DR: ROGERIO/YONAS TID: [id number] RECEIPT: [id number]
[2021-06-11 11:08] VITALS: BP 131/71
== END 2021-06-11 11:00 | disposition home health service (06) | DRG 470 ==
LOC: MS 12:39
PROVIDERS: ADMIT Orthopaedic Surgery; ATTEND Orthopaedic Surgery
PROC: 0SRD0J9 Replacement of Left Knee Joint with Synthetic Substitute, Cemented, Open Approach (ICD-10-PCS; principal; 2021-06-09 08:38)
DX: M17.12 Unilateral primary osteoarthritis, left knee (principal); D62 Acute posthemorrhagic anemia; G47.30 Sleep apnea, unspecified; I10 Essential (primary) hypertension; Z82.3 Family history of stroke; Z82.49 Family history of ischemic heart disease and other diseases of the circulatory system; Z79.82 Long term (current) use of aspirin; Z79.899 Other long term (current) drug therapy
CPT/HCPCS: 36415; 80053; 81001; 85025; 85027; 87070; 97161; 97166; 97530; A4217; C1713; C1776; G0378; J0131; J0171; J0690; J1100; J1885; J2060; J3010; J3490; J7050; J7120; 97110-GP; 97116-GP; 97535-GO; 97760-GP; C9290; J2274; J8499

== ENCOUNTER 2022-12-26 18:49 | Observation (INO) | payer MEDICARE ==
[~2022-12-26] VITALS: Ht 170.2 cm; Wt 86.7 kg
[~2022-12-26 18:49] MED LIST changes: -ANCEF ONE; -ATIVAN ONE; -BACTROBAN OINTMENT TP ONE; -CELEBREX PO ONE; -DECADRON IV ONE; -DEXAMETHASONE 10 MG/ML VIAL ONE; -DIPRIVAN 100 ML IV ONE; -DURAMORPH ONE; -EPINEPHrine ONE; -EXPAREL 266 MG/20 ML VIAL IJ ONE; -HESPAN 6%-NS INFUSION BAG 500 ML IV ONE; -LACTATED RINGERS 1,000 ML IV SCH; -NEURONTIN PO ONE; -NS 100ML 100 ML IV ONE; -NS 250ML 250 ML ONE; -NS 3000ML IRR IR ONE; -OFIRMEV IV ONE; -SENSORCAINE 0.5% VIAL ONE; -SENSORCAINE-MPF 0.25% VIAL ONE; -SODIUM CHLORIDE IRR BOTTLE IR ONE; -SUBLIMAZE ONE; -TORADOL ONE; +TRAM-47 PO; -TRANEXAMIC ACID ONE; -TRANSDERM-SCOP TD ONE; -ULTRAM PO ONE; -VASOPRESSIN ONE; -WATER ONE
[2022-12-26 19:02] VITALS: BP 149/80; PULSE 90; RESP 16; TEMP 98.2; O2SAT 94
[2022-12-26] MEDS ORDERED: TORADOL IV STA (19:13)
[2022-12-26 19:16] LABS: BILIRUBIN,URINE NEGATIVE (NEGATIVE); UROBILINOGEN,URINE 0.2 E.U./dL (0.2)
[2022-12-26] MEDS ORDERED: TORADOL ONE (19:18)
[2022-12-26 19:24] LABS: BASOPHIL % 0.2 % (0.0-0.2); EOSINOPHIL % 0.4 % (0.0-5.0); LYMPHOCYTES # 0.88 10^3/uL1 (1.0-4.8); MEAN CORP HGB 31.6 pg (26-34); MONOCYTES # 0.8 10^3/uL (0.3-0.8); MONOCYTES % 7.4 % (5.0-12.0); NEUTROPHIL # 9.3 10^3/uL (1.8-7.7); NEUTROPHILS % 83.7 % (41.0-85.0); PLATELET COUNT 250 10^3/uL (150-400); RED CELL DISTRIBUTION WIDTH 12.5 % (11.5-14.5)
--- NOTE | 2022-12-26 19:30 | ER.PDOC ---
General Chief Complaint: Male Stated Complaint: KIDNEY INFECTION, FLANK PAIN Time seen by MD: 19:27 Source: patient Exam Limitations: no limitations History of Present Illness Initial Comments Right flank pain radiating to the right groin and burning with urination for 3 days. Patient was seen at the urgent care yesterday and started on an antibiotic. He comes to the ED today because of worsening pain. No fever or chills. No nausea or vomiting. Severity/Quality: moderate Radiation: RLQ Associated Symptoms: denies symptoms Exacerbated by: nothing Relieved By: nothing Allergies: Coded Allergies: No Known Allergies (Unverified , 06/04/21) Home Meds Reported Medications Tramadol Hcl (ULTRAM) 50 Mg Tablet, 1-2 TAB PO TIWP PRN for pain MDD 2 Tablet(s) for 30 Days, #25 TAB 1 Refill 06/11/21 Aspirin (ASPIRIN) 81 Mg Tab.chew, 1 TAB PO DAILY, #30 TAB 3 Refills 06/04/21 Multivitamin (DAILY VITAMIN FORMULA) 1 Each Tablet, 1 TAB PO QD for 30 Days, #30 TAB 0 Refills 06/04/21 Amlodipine Besylate (AMLODIPINE BESYLATE) 5 Mg Tablet, 1 TAB PO DAILY, #30 TAB 5 Refills 06/04/21 Atorvastatin 20MG (LIPITOR 20MG) 20 Mg Tablet, 1 TAB PO DAILY, #90 TAB 1 Refill 06/04/21 [Osteo Move] No Conflict Check, 1 TAB PO DAILY24 06/04/21 Loratadine (CLARITIN) 10 Mg Tablet, 1 TAB PO QD for allergy symptoms for 30 Days, #30 TAB 0 Refills 06/04/21 Cholecalciferol (Vitamin D3) (VITAMIN D3) 5,000 Unit Tablet, 1 TAB PO DAILY, #30 TAB 3 Refills 10/15/14 Ezetimibe (ZETIA) 10 Mg Tablet, 10 MG PO DAILY, TABLET 10/15/14 Ramipril 10MG (ALTACE 10MG) 10 Mg Capsule, 10 MG PO BID, CAPSULE 10/15/14 Vital Signs First Vital Signs Date Time Temp Pulse Resp B/P (MAP) Pulse Ox O2 Delivery O2 Flow Rate FiO2 12/26/22 19:02 98.2 90 16 94 12/26/22 19:02 149/80 (103) Room Air* 0 21 Last Vital Signs Date Time Temp Pulse Resp B/P (MAP) Pulse Ox O2 Delivery O2 Flow Rate FiO2 12/26/22 21:03 98.2 85 16 142/91 (108) 93 Room Air* 0 21 Past Medical History Medical History: high cholesterol, hypertension Surgical History: knee Family History Significant Family History: no pertinent family hx Social History Smoking: non-smoker Alcohol Use: occassionally Drug Use: none Constitutional: no symptoms reported EENTM: no symptoms reported Respiratory: no symptoms reported Cardiovascular: no symptoms reported Gastrointestinal: see HPI Genitourinary: see HPI All Other Systems: Reviewed and Negative Physical Exam General Appearance: No Apparent Distress, WD/WN HEENT: PERRL/EOMI, Normal ENT Inspection, TMs Normal, Pharynx Normal Neck: Non-Tender, Full Range of Motion, Supple, Normal Inspection Respiratory: chest non-tender, lungs clear, normal breath sounds, no respiratory distress, no accessory muscle use Cardiovascular: Normal Peripheral Pulses, Regular Rate, Rhythm, No Edema, No Gallop, No JVD, No Murmur Gastrointestinal: Normal Bowel Sounds, No Organomegaly, No Pulsatile Mass, Tenderness (RLQ) Back: CVA Tenderness (R) Extremities: Normal Range of Motion, Non-Tender, Normal Inspection, No Pedal Edema, No Calf Tenderness, Normal Capillary Refill, Pelvis Stable Neurologic/Psychiatric: massage coordinator II-XII NML as Tested, No Motor/Sensory Deficits, Alert, Normal Mood/Affect, Oriented x 3 Skin: Normal Color, Warm/Dry Lymphatic: No Adenopathy Results/Orders Results/Orders Orders - ALDO WATSON MD Urinalysis (12/26/22 19:08) Cbc With Auto Diff (12/26/22 19:13) Comprehensive Metabolic Panel (12/26/22 19:13) PT (12/26/22 19:13) Partial Thromboplastin Time. (12/26/22 19:13) Ct Abd/Pelvis Wo Iv Contrast (12/26/22 19:13) Ketorolac Tromethamine (Toradol) (12/26/22 19:13) Ketorolac Tromethamine (Toradol) (12/26/22 19:18) Urine Culture (12/26/22 19:03) 0.9 % Sodium Chloride (Ns 1000ml) (12/26/22 19:47) Vital Signs Date Time Temp Pulse Resp B/P (MAP) Pulse Ox O2 Delivery O2 Flow Rate FiO2 12/26/22 21:03 98.2 85 16 142/91 (108) 93 Room Air* 0 12/26/22 20:05 98.2 84 16 144/82 (102) 93 Room Air* 0 21 12/26/22 19:02 98.2 90 16 149/80 (103) 94 Room Air* 0 21 12/26/22 19:02 98.2 90 16 12/26/22 19:02 98.2 90 16 94 Administered Medications Medications (Trade) Dose Ordered Sig/Pradeep Route PRN Reason Start Time Stop Time Status Last Admin Dose Admin Ketorolac Tromethamine (Toradol) 30 mg STAT STAT IV 12/26/22 19:13 12/26/22 19:15 DC 12/26/22 19:20 30 MG Sodium Chloride 1,000 ml @ 1,200 mls/hr Q50M STAT IV 12/26/22 19:47 12/26/22 20:36 UNV 12/26/22 19:55 1,200 MLS/HR Laboratory Tests Test 12/26/22 19:03 12/26/22 19:20 Urine Collection Type RANDOM Urine Color YELLOW Urine Appearance CLEAR Urine Bilirubin NEGATIVE (NEGATIVE) Urine Ketones TRACE (NEGATIVE) H Urine Specific Cost 1.025 (1.005-1.030) Urine pH 5.5 (4.5-8.0) Urine Protein 2+ (NEGATIVE) H Urine Urobilinogen 0.2 E.U./dL (0.2) Urine Nitrate POSITIVE (NEGATIVE) H Urine Leukocyte Esterase TRACE (NEGATIVE) H Urine Glucose (Auto)(UA) NEGATIVE (NEGATIVE) Urine Blood TRACE-INTACT (NEGATIVE) H Urine RBC 0-2 RBC/HPF (NONE SEEN) Urine WBC 0-2 WBC/HPF (0-2) Urine Squamous Epithelial Cells NONE SEEN (<=FEW) Urine Bacteria FEW (NONE SEEN) H White Blood Count 11.1 10^3/uL (4.5-11.0) H Red Blood Count 4.93 10^6/uL (4.50-5.90) Hemoglobin 15.6 g/dL (13.9-16.3) Hematocrit 46.4 % (37.0-53.0) Mean Corpuscular Volume 94.1 fL (78-100) Mean Corpuscular Hemoglobin 31.6 pg (26-34) Mean Corpuscular Hemoglobin Concent 33.6 g/dL (33-36.5) Red Cell Distribution Width 12.5 % (11.5-14.5) Platelet Count 250 10^3/uL (150-400) Mean Platelet Volume 8.6 fL (7.8-11.0) Neutrophils (%) (Auto) 83.7 % (41.0-85.0) Lymphocytes (%) (Auto) 8.0 % (24.0-44.0) L Monocytes (%) (Auto) 7.4 % (5.0-12.0) Neutrophils # (Auto) 9.3 10^3/uL (1.8-7.7) H Lymphocytes # (Auto) 0.88 10^3/uL1 (1.0-4.8) L Monocytes # (Auto) 0.8 10^3/uL (0.3-0.8) Absolute Immature Granulocyte (auto 0.03 10^3 u/L (0-2) Absolute Eosinophils (auto) 0.0 10^3/uL (0.0-0.2) Immature Granulocytes % 0.30 % (0.00-0.50) Eosinophils % 0.4 % (0.0-5.0) Basophils % 0.2 % (0.0-0.2) Basophils # 0.0 10^3/uL (0.0-0.1) Prothrombin Time 10.2 SEC (9.7-11.6) INR 1.0 Activated Partial Thromboplast Time 28.9 SEC (22.5-33.1) Sodium Level 137 mmol/L (132-145) Potassium Level 4.8 mmol/L (3.6-5.2) Chloride Level 103.0 mmol/L (96-109) Carbon Dioxide Level 21.5 mmol/L (20.0-32) Anion Gap 17.3 Blood Urea Nitrogen 29 mg/dL (7-18) H Creatinine 2.62 mg/dL (0.59-1.40) H Estimated GFR () 29.1 (>/=60) Est GFR (CKD-EPI)(Non-Afr [place]i) 24.0 (>/=60) BUN/Creatinine Ratio 11.0 (10.0-20.0) Glucose Level 126 mg/dL (74-106) H Calcium Level 9.2 mg/dL (8.4-10.5) Total Bilirubin 0.7 mg/dL (0.2-1.0) Aspartate Amino Transferase (AST) 22 U/L (0-35) Alanine Aminotransferase (ALT) 18 U/L (12-78) Alkaline Phosphatase 97 U/L (50-136) Total Protein 8.0 g/dL (6.4-8.2) Albumin 3.9 g/dL (3.4-5.0) Globulin 4.1 Albumin/Globulin Ratio 0.[address] abdomen/pelvis: Minimal perirenal stranding bilaterally. Mild prominence of the right collecting system with 2 mm right collecting system stone. Minimal prominence of the right ureter with 3 mm right ureterovesicular junction stone. WBC 11.1, rest of CBC is normal. Urinalysis consistent with UTI. Glucose 126, BUN 29, creatinine 2.62, rest of chemistries unremarkable. I consulted Dr. Keenan and patient admitted. Her last creatinine last year was 1. ER DEPART Departure Time of Disposition: 21:30 Disposition: 09 ADMITTED INPATIENT Impression: Primary Impression: Ureteral stone with hydronephrosis Additional Impressions: Acute renal failure UTI (urinary tract infection) Condition: Improved Referrals: KYRA DUBOIS MD (PCP) PRIMARY CARE PROVIDER Comments Admitted to Dr. Tran Duration or Time Spent with Pa: 45 min Problem Qualifiers Additional Impressions: Acute renal failure Acute renal failure type: unspecified Qualified Codes: N17.9 - Acute kidney failure, unspecified UTI (urinary tract infection) Urinary tract infection type: site unspecified Hematuria presence: with hematuria Qualified Codes: N39.0 - Urinary tract infection, site not specified; R31.9 - Hematuria, unspecified ALDO WATSON MD Dec 26, 2022 19:30
[2022-12-26 19:43] LABS: CARBON DIOXIDE 21.5 mmol/L (20.0-32)
[2022-12-26] MEDS ORDERED: NS 1000ML 1,000 ML IV STA (19:47)
[2022-12-26 20:05] VITALS: BP 144/82; PULSE 84; RESP 16; TEMP 98.2; O2SAT 93
--- NOTE | 2022-12-26 20:38 | DIREP ---
PROCEDURE:CT ABDOMEN/PELVIS W/O CONTRAST COMPARISON:None. INDICATIONS:Right flank pain TECHNIQUE:Axial images were created through the abdomen and pelvis without intravenous contrast material. No oral contrast was administered. Sagittal and coronal reconstructions were performed from source images. FINDINGS: LUNG BASES:Normal. No visible pulmonary or pleural disease. LIVER:Normal. No significant liver lesions are identified. BILIARY:Normal. No visible dilatation or calcification. PANCREAS:Normal. No lesion, fluid collection, ductal dilatation, or atrophy. SPLEEN:Normal. No enlargement or focal lesion. ADRENALS:Normal. No mass or enlargement. URINARY TRACT:Minimal perirenal stranding bilaterally. Mild prominence of the right collecting system with 2 mm right collecting system stone. Minimal prominence of the right ureter with 3 mm right ureterovesicular junction stone. AORTA/VASCULAR:Normal. No aneurysm. RETROPERITONEUM:Normal. No mass or adenopathy. BOWEL/MESENTERY:There is moderate colonic diverticulosis without evidence for diverticulitis. There is no intestinal obstruction, free fluid, free air or mesenteric inflammatory changes. ABDOMINAL WALL:Normal. No mass or hernia. PELVIC ORGANS:Normal. No visible mass. Pelvic organs appropriate for patient age. BONES:Normal for age. No bony lesion or acute fracture. OTHER:Negative. CONCLUSION:3 mm cysts right ureterovesicular junction stone with mild prominence of the collecting system and ureter. Additional 2 mm right collecting system stone. Diverticulosis without CT evidence of acute diverticulitis. Dictated by: Ayush Jacinto MD on 12/26/2022 at 08:30 PM
[2022-12-26 21:03] VITALS: BP 142/91; PULSE 85; RESP 16; TEMP 98.2; O2SAT 93
[2022-12-26] MEDS ORDERED: HNS 1000ML 1,000 ML IV STA (21:31)
[2022-12-26] MEDS ORDERED: ROCEPHIN 1,000 MG in NS 100ML 100 ML IV STA (21:31)
[2022-12-26] MEDS ORDERED: ROCEPHIN ONE (21:39)
[2022-12-26] MEDS ORDERED: HNS 1000ML 1,000 ML ONE (21:39)
[2022-12-26] MEDS ORDERED: LORA10TA75 PO (21:43)
[2022-12-26] MEDS ORDERED: VITA25006 PO (21:43)
--- NOTE | 2022-12-26 21:45 | NUR ---
CALLED TO GIVEN REPORT STATES LAURA IS IN WITH PATIENT, UNABLE TO TAKE REPORT
--- NOTE | 2022-12-26 21:53 | NUR ---
CALLED TO GIVEN REPORT #2 SPOKE WITH CARLITO VARGAS, STATES RN TAKING PATIENT IS PASSING MEDS, UNABLE TO TAKE REPORT
--- NOTE | 2022-12-26 21:55 | NUR ---
REPORT TO [facility] REPORT GIVEN TO CARLITO AGUDELO
[2022-12-26 22:38] VITALS: BP 132/85; PULSE 94; RESP 18; TEMP 98.1; O2SAT 95
--- NOTE | 2022-12-26 22:43 | PRM.CONS ---
Consultation History of Present Illness History of Patient Comments Patient is a 72 y/o male with a PMH of HTN, GERD that presents to the ED because of Right flank pain. Never experienced before. CUrrent episode of symptoms started 3 days ago. no known cause. Symptoms getting worse. Worse with palpation. better when no palpated. (+) Constant, radiates to the RLQ. (+) dysuria. no fever. no nvdc. Patient presented to the urgent care yesterday where she was started on antibiotics but this is ineffective. First Vital Signs Date Time Temp Pulse Resp B/P (MAP) Pulse Ox O2 Delivery O2 Flow Rate FiO2 12/26/22 19:02 98.2 90 16 94 12/26/22 19:02 149/80 (103) Room Air* 0 21 Last Vital Signs Date Time Temp Pulse Resp B/P (MAP) Pulse Ox O2 Delivery O2 Flow Rate FiO2 12/26/22 22:38 98.1 94 18 132/85 (101) 95 Room Air* 0 21 Gen - nondistressed Heent - NCAT Neuro - AOX3 Psych - appropriate CV - No bilateral lower extremity edema Pulm - no respiratory distress Abd - soft, Right flank tenderness, non distended Skin - no rash MMSK - 5/5 strength in all 4 extremities Laboratory Tests Test 12/26/22 19:03 12/26/22 19:20 Urine Collection Type RANDOM Urine Color YELLOW Urine Appearance CLEAR Urine Bilirubin NEGATIVE Urine Ketones TRACE Urine Specific [place] 1.025 Urine pH 5.5 Urine Protein 2+ Urine Urobilinogen 0.2 E.U./dL Urine Nitrate POSITIVE Urine Leukocyte Esterase TRACE Urine Glucose (Auto)(UA) NEGATIVE Urine Blood TRACE-INTACT Urine RBC 0-2 RBC/HPF Urine WBC 0-2 WBC/HPF Urine Squamous Epithelial Cells NONE SEEN Urine Bacteria FEW White Blood Count 11.1 10^3/uL Red Blood Count 4.93 10^6/uL Hemoglobin 15.6 g/dL Hematocrit 46.4 % Mean Corpuscular Volume 94.1 fL Mean Corpuscular Hemoglobin 31.6 pg Mean Corpuscular Hemoglobin Concent 33.6 g/dL Red Cell Distribution Width 12.5 % Platelet Count 250 10^3/uL Mean Platelet Volume 8.6 fL Neutrophils (%) (Auto) 83.7 % Lymphocytes (%) (Auto) 8.0 % Monocytes (%) (Auto) 7.4 % Neutrophils # (Auto) 9.3 10^3/uL Lymphocytes # (Auto) 0.88 10^3/uL1 Monocytes # (Auto) 0.8 10^3/uL Absolute Immature Granulocyte (auto 0.03 10^3 u/L Absolute Eosinophils (auto) 0.0 10^3/uL Immature Granulocytes % 0.30 % Eosinophils % 0.4 % Basophils % 0.2 % Basophils # 0.0 10^3/uL Prothrombin Time 10.2 SEC INR International Normalized Ratio 1.0 Activated Partial Thromboplast Time 28.9 SEC Sodium Level 137 mmol/L Potassium Level 4.8 mmol/L Chloride Level 103.0 mmol/L Carbon Dioxide Level 21.5 mmol/L Anion Gap 17.3 Blood Urea Nitrogen 29 mg/dL Creatinine 2.62 mg/dL Estimated GFR () 29.1 Est GFR (CKD-EPI)(Non-Afr [place]) 24.0 BUN/Creatinine Ratio 11.0 Glucose Level 126 mg/dL Calcium Level 9.2 mg/dL Total Bilirubin 0.7 mg/dL Aspartate Amino Transf (AST/SGOT) 22 U/L Alanine Aminotransferase (ALT/SGPT) 18 U/L Alkaline Phosphatase 97 U/L Total Protein 8.0 g/dL Albumin 3.9 g/dL Globulin 4.1 Albumin/Globulin Ratio 0.951 Current Medications Medications (Trade) Dose Ordered Sig/Pradeep Route PRN Reason Start Time Stop Time Status Last Admin Dose Admin Ketorolac Tromethamine (Toradol) 30 mg STAT STAT IV 12/26/22 19:13 12/26/22 19:15 DC 12/26/22 19:20 Ketorolac Tromethamine (Toradol) 30 mg STK-MED ONCE .ROUTE 12/26/22 19:18 12/26/22 19:18 DC Sodium Chloride 1,000 ml @ 1,200 mls/hr Q50M STAT IV 12/26/22 19:47 12/26/22 20:36 UNV 12/26/22 19:55 Sodium Chloride 1,000 ml @ 100 mls/hr Q10H STAT IV 12/26/22 21:31 12/27/22 07:30 12/26/22 21:43 Ceftriaxone Sodium 1000 mg/ Sodium Chloride 100 ml @ 100 mls/hr STAT STAT IV 12/26/22 21:31 12/26/22 22:30 DC 12/26/22 21:43 Sodium Chloride 1,000 ml @ ud STK-MED ONCE .ROUTE 12/26/22 21:39 12/26/22 21:39 DC Ceftriaxone Sodium (Rocephin) 1,000 mg STK-MED ONCE .ROUTE 12/26/22 21:39 12/26/22 21:39 DC Aspirin (Aspirin Ec) 81 mg DAILY PO 12/27/22 09:00 01/26/23 08:59 UNV Acetaminophen (Tylenol) 650 mg Q4H PRN PO PAIN 1 - 3 12/26/22 23:00 01/25/23 22:59 UNV Ondansetron HCl (Zofran) 4 mg Q4H PRN IV NAUSEA / VOMITING 12/26/22 23:00 01/25/23 22:59 UNV Morphine Sulfate (Morphine Sulfate) 2 mg Q4H PRN IV PAIN 4 - 6 12/26/22 23:00 01/25/23 22:59 UNV Sodium Chloride 1,000 ml @ 0 mls/hr Q0M IV 12/26/22 23:00 12/28/22 10:59 UNV Sodium Chloride 1,000 ml @ 100 mls/hr OT ONCE IV 12/26/22 23:00 12/27/22 08:59 UNV Sodium Chloride 1,000 ml @ 1,000 mls/hr Q1H ONCE IV 12/28/22 11:00 12/28/22 11:59 UNV Ceftriaxone Sodium 1000 mg/ Sodium Chloride 100 ml @ 200 mls/hr Q24HRS IV 12/26/22 23:00 01/25/23 22:[address] abd/pelvis CONCLUSION:3 mm cysts right ureterovesicular junction stone with mild prominence of the collecting system and ureter. Additional 2 mm right collecting system stone. Diverticulosis without CT evidence of acute diverticulitis. 1. Right flank pain - AVSS. white count 11. no anemia. normal plts. cr 2.[address] (+) 2mm right UPJ stone. UA (+) bacteria. Patient has evidence of right pyelonephritis, kidney stones. (+) GABO. Start IVF, pain meds and abx. admit. Urology consulted. VTE VTE Risk Total Score: 4 VTE Risk Score VTE Risk: Score 0-1 = Low Risk (Aggressive mobilization; early ambulation; no VTE prophylaxis required) Score 2: Moderate Risk (Intermittent/Pneumatic Compression Device OR Lovenox/Heparin/Coumadin) Score 3-4: High Risk (Intermittent/Pneumatic Compression Device AND Lovenox/Heparin/Coumadin) Score > or =5: Highest Risk (Intermittent/Pneumatic Compression Device AND Lovenox/Heparin/Coumadin) VTE VTE Present on Admission: No Currently receiving anticoagul: No VTE Risk Total Score: 4 VTE VTE Risk Total Score: 4 KEDAR CLEMENTE MD Dec 26, 2022 22:43
[2022-12-26] MEDS ORDERED: NS 1000ML 1,000 ML IV SCH (23:00)
[2022-12-26] MEDS ORDERED: NS 1000ML 1,000 ML IV ONE (23:00)
[2022-12-26] MEDS: ROCEPHIN 1,000 MG in NS 100ML 100 ML IV SCH (23:00)
[2022-12-26] MEDS ORDERED: MORPHINE SULFATE IV PRN (23:00)
[2022-12-26] MEDS ORDERED: ZOFRAN IV PRN (23:00)
[2022-12-27] VITALS (12 sets, daily range): BP systolic 83–134; BP diastolic 54–88; PULSE 71–95; RESP 16–20; TEMP 97.3–98.5; O2SAT 90–98
[2022-12-27 06:11] LABS: BASOPHIL % 0.2 % (0.0-0.2); EOSINOPHIL % 0.2 % (0.0-5.0); LYMPHOCYTES % 9.5 % (24.0-44.0); MEAN CORP HGB 31.3 pg (26-34); MONOCYTES % 9.2 % (5.0-12.0); NEUTROPHIL # 8.5 10^3/uL (1.8-7.7); NEUTROPHILS % 80.6 % (41.0-85.0); PLATELET COUNT 232 10^3/uL (150-400); RED CELL DISTRIBUTION WIDTH 12.7 % (11.5-14.5)
[2022-12-27 06:24] LABS: CARBON DIOXIDE 20.8 mmol/L (20.0-32)
[2022-12-27] MEDS ORDERED: MORPHINE SULFATE ONE (07:58)
[2022-12-27] MEDS: NS 1000ML 1,000 ML IV SCH ×2 (08:00→13:24)
[2022-12-27] MEDS: ASPIRIN EC PO SCH (09:00)
--- NOTE | 2022-12-27 10:19 | CNH ---
DATE OF CONSULTATION: 12/27/2022 DICTATOR NAME: Eleno Keenan MD HISTORY OF PRESENT ILLNESS: This is a 72-year-old white male who was admitted from the Emergency Room yesterday because of right renal colic. A noncontrast CT scan was done in the Emergency Room, which revealed a stone in the right distal ureter with some mild hydronephrosis. The serum creatinine was high, was elevated to 2.2 and because of this, he has been referred for further urological management. I reviewed the x-ray with the patient this morning and I explained to him the procedure which I will suggest to be done this morning, which is a cystoscopy, right retrograde, possible basket stone extraction, possible stent insertion with ureteroscopy. Eleno Keenan MD DR: CYNTHIA TID: [id number] RECEIPT: [id number]
[2022-12-27] MEDS ORDERED: LEVAQUIN 100 ML IV ONE (10:24)
[2022-12-27] MEDS ORDERED: MORPHINE SULFATE IV PRN (10:30)
[2022-12-27] MEDS ORDERED: SUBLIMAZE ONE (10:35)
[2022-12-27] MEDS ORDERED: DECADRON ONE (10:35)
[2022-12-27] MEDS ORDERED: XYLOCAINE 2% 5ML VIAL ONE (10:35)
[2022-12-27] MEDS ORDERED: ZOFRAN ONE (10:35)
[2022-12-27] MEDS ORDERED: TORADOL ONE (10:35)
[2022-12-27] MEDS ORDERED: DIPRIVAN IV ONE (10:36)
--- NOTE | 2022-12-27 11:02 | PCM.HP ---
History of Present Illness Reason for Visit: Right flank pain History of Present Illness 72 y/o male with a PMH of HTN, GERD that presents to the ED because of Right flank pain. Never experienced before. CUrrent episode of symptoms started 3 days ago. no known cause. Symptoms getting worse. Worse with palpation. better when no palpated. (+) Constant, radiates to the RLQ. (+) dysuria. no fever. no nvdc. Patient presented to the urgent careThe day beforeYesterday where Hewas started on antibiotics but this is ineffective.Work-up in the emergency room patient was found to have obstructive uropathy, ureter stones.Acute renal failure with elevated creatinine of 2.6.Patient started on IV fluids. Today creatinine is 2.4. Patient continues to have right flank pain. Urologist consulted. Patient is being admitted hospital for further management. Past Medical History Cardiac: HTN, Hyperlipidemia Past Surgical History: No pertinent hx Past Social History Smoke: No Alcohol: none Drugs: None Travel Hx EBOLA RISK:Travel to/contact w: No Review of Systems Constitutional: No: Fever, Chills Gastrointestinal: Nausea, Other (Right flank pain) Allergies: Coded Allergies: No Known Allergies (Unverified , 06/04/21) Scheduled Aspirin (Aspirin), 1 TAB PO DAILY, (Reported) Atorvastatin 20MG (Lipitor 20MG), 1 TAB PO DAILY, (Reported) Ezetimibe (Zetia), 10 MG PO DAILY, (Reported) Loratadine (Claritin), 10 MG PO DAILY24, (Reported) Ramipril 10MG (Altace 10MG), 10 MG PO DAILY24, (Reported) Vitamin D3/Folic Acid (Noxifol-D3 2,500 Unit-1 mg Tab), 1,000 UNIT PO DAILY24, (Reported) Discontinued Medications Amlodipine Besylate (Amlodipine Besylate), 1 TAB PO DAILY, (Reported) Discontinued Reason: No Longer Taking Cholecalciferol (Vitamin D3) (Vitamin D3), 1 TAB PO DAILY, (Reported) Discontinued Reason: No Longer Taking Loratadine (Claritin), 1 TAB PO QD, (Reported) Discontinued Reason: No Longer Taking Multivitamin (Daily Vitamin Formula), 1 TAB PO QD, (Reported) Discontinued Reason: No Longer Taking Tramadol Hcl (Ultram), 1-2 TAB PO TIWP PRN for pain, (Reported) Discontinued Reason: No Longer Taking [Osteo Move], 1 TAB PO DAILY24, (Reported) Discontinued Reason: No Longer Taking VTE VTE Risk Total Score: 4 VTE Risk Score VTE Risk: Score 0-1 = Low Risk (Aggressive mobilization; early ambulation; no VTE prophylaxis required) Score 2: Moderate Risk (Intermittent/Pneumatic Compression Device OR Lovenox/Heparin/Coumadin) Score 3-4: High Risk (Intermittent/Pneumatic Compression Device AND Lovenox/Heparin/Coumadin) Score > or =5: Highest Risk (Intermittent/Pneumatic Compression Device AND Lovenox/Heparin/Coumadin) Exam Vital Signs Vital Signs Date Time Temp Pulse Resp B/P (MAP) Pulse Ox O2 Delivery O2 Flow Rate FiO2 12/27/22 10:05 98.5 91 16 131/83 (99) 93 Room Air 12/27/22 07:07 0 21 General Appearance: Alert, Oriented X3, moderate distress HEENT: Atraumatic, PERRLA Respiratory: Clear to auscultation, Normal air movement Cardiovascular: Regular rate, Normal S1, Normal S2 Abdominal: Normal bowel sounds, Soft, Other (Right flank tenderness) Extremities: No clubbing, No cyanosis Skin: No lesions Neuro: Normal speech, Normal tone Psych/Mental Status: Mental status NL, Mood NL Assessment/Plan Assessment/Plan Assessment/Plan 72 y/o male with a PMH of HTN, GERD that presents to the ED because of Right flank pain. Never experienced before. CUrrent episode of symptoms started 3 days ago. no known cause. Symptoms getting worse. Worse with palpation. better when no palpated. (+) Constant, radiates to the RLQ. (+) dysuria. no fever. no nvdc. Patient presented to the urgent careThe day beforeYesterday where Hewas started on antibiotics but this is ineffective.Work-up in the emergency room patient was found to have obstructive uropathy, ureter stones.Acute renal failure with elevated creatinine of 2.6.Patient started on IV fluids. Today creatinine is 2.4. Patient continues to have right flank pain. Urologist consulted. Patient is being admitted hospital for further management. Plan Patient admitted for further management IV fluids Monitor kidney function and urine output Antibiotic Urology consulted for further management, possible cystoscopy today Reconcile home meds DVT prophylaxis SCDs while in bed Expect length of stay less than 2 midnights Time spent examining the patient, obtaining history, reviewing labs, images, discussing the case with patient, family, RN, documentation and placing orders more than 75 minutes Problems: (1) Acute renal failure Status: Acute ICD Code: N17.9 - Acute kidney failure, unspecified SNOMED: 93337259 (2) Obstructive uropathy ICD Code: N13.9 - Obstructive and reflux uropathy, unspecified SNOMED: 4150976 (3) Ureteral stone with hydronephrosis Status: Acute ICD Code: N13.2 - Hydronephrosis with renal and ureteral calculous obstruction SNOMED: 5524463883, 4985302, 10294535 (4) UTI (urinary tract infection) Status: Acute ICD Code: N39.0 - Urinary tract infection, site not specified SNOMED: 90916888, 9659954, 59525985 (5) Hypertension Status: Chronic ICD Code: I10 - Essential (primary) hypertension SNOMED: 95182185 Patient History: Cerebrovascular disorder 33 FATHER, , Age:69 Congestive heart failure G8 SISTER, , Age:55 Hepatitis C G8 BROTHER Hypertension 33 FATHER, , Age:69 G8 BROTHER, , Age:79 No Family History of: Alzheimer's disease Asthma Chronic obstructive pulmonary disease Diabetes insipidus Diabetes mellitus Parkinson's disease Unknown Problem Qualifiers (1) Acute renal failure: Acute renal failure type: unspecified Qualified Codes: N17.9 - Acute kidney failure, unspecified (2) UTI (urinary tract infection): Urinary tract infection type: site unspecified Hematuria presence: with hematuria Qualified Codes: N39.0 - Urinary tract infection, site not spec ified; R31.9 - Hematuria, unspecified TABBY STEPHENS MD Dec 27, 2022 11:02
[2022-12-27] MEDS ORDERED: LEVAQUIN 100 ML IV STA (11:03)
[2022-12-27] MEDS ORDERED: LACTATED RINGERS 1,000 ML IV SCH (12:30)
--- NOTE | 2022-12-27 12:35 | NUR ---
RETURN FROM OR PT ARRIVED VIA HOSPITAL BED. PT ALERT AND ORIENTED X3. PT DENIES PAIN AT THIS TIME. F/C IN PLACE WITH BRIGHT RED OUTPUT NOTED.
--- NOTE | 2022-12-27 15:28 | DIREP ---
PROCEDURE:XRAY FLUOROSCOPY COMPARISON:[facility], CT, CT ABD/PELVIS W/O, 12/26/2022, 08:13 PM. INDICATIONS:CYSTO, STENT PLACEMENT, 168.7 SEC FLUORO TIME, 48.85 mGy, 7 IMAGES TECHNIQUE:Fluoroscopy FINDINGS: Fluoroscopy provided for urological procedure. 169 seconds of fluoroscopy utilized. Eight digital spot films submitted. These reveal safety wire ureteral stent positioned on the right. This appears well positioned on the final 2 images. Tiny calcification at the right UVJ suspected CONCLUSION:Fluoroscopy for right-sided stent placement. See separate urological note for procedure details Dictated by: Ayush Jacinto MD on 12/27/2022 at 03:19 PM
--- NOTE | 2022-12-27 16:38 | OPH ---
DATE OF SURGERY: 12/27/2022 DICTATOR NAME: Eleno Keenan MD PREOPERATIVE DIAGNOSIS: Calculus, right distal ureter. FINAL DIAGNOSIS: Calculus, right distal ureter with severe bulbous urethral stricture and prostatic hyperplasia. DESCRIPTION OF PROCEDURE: The patient was brought to the cystoscopy room and was placed in supine position on the cystoscopy table. After the patient was given a satisfactory and adequate LMA general anesthesia, the patient was placed in the lithotomy position. The genitalia was then prepped and draped aseptically in the usual manner. First, cystourethroscopy was performed and it showed severe bulbous urethral stricture with the prostatic hyperplasia, but after dilatation of the posterior urethra, the cystoscope was able be inserted to the bladder and the bladder was visualized. The trigone was markedly congested and I could hardly see the ureteral orifice. Attempted right retrograde was done and the catheter would not go through because of the swelling of the right ureteral orifice. So, the ureteral catheter was removed and a Glidewire was placed instead and was able to maneuver and manipulate to navigate all the way to the right kidney and then a 4.8-Slovenian double-J ureteral stent was inserted through the Glidewire all the way to the right kidney. After the proper placement of the ureteral stent, the Glidewire was removed and then a Salguero catheter was inserted. After this was done, the patient was then awakened, was transferred to the recovery room in stable condition. Eleno Keenan MD DR: VEL TID: [id number] RECEIPT: [id number]
[2022-12-27] MEDS ORDERED: WATER ONE (20:15)
[2022-12-27] MEDS: TYLENOL PO PRN (21:01)
[2022-12-27] MEDS: ROCEPHIN 1,000 MG in NS 100ML 100 ML IV SCH (23:01)
[2022-12-28 00:14] VITALS: BP 111/60; PULSE 69; RESP 18; TEMP 97; O2SAT 91
[2022-12-28] MEDS: NS 1000ML 1,000 ML IV SCH (01:44)
[2022-12-28 04:34] VITALS: BP 126/69; PULSE 76; RESP 18; TEMP 97.5; O2SAT 91
[2022-12-28 05:39] LABS: BASOPHIL % 0.1 % (0.0-0.2); EOSINOPHIL % 0.1 % (0.0-5.0); LYMPHOCYTES # 1.18 10^3/uL1 (1.0-4.8); LYMPHOCYTES % 12.8 % (24.0-44.0); MEAN CORP HGB 31.2 pg (26-34); MONOCYTES # 0.7 10^3/uL (0.3-0.8); MONOCYTES % 7.5 % (5.0-12.0); NEUTROPHIL # 7.3 10^3/uL (1.8-7.7); NEUTROPHILS % 79.3 % (41.0-85.0); PLATELET COUNT 223 10^3/uL (150-400); RED CELL DISTRIBUTION WIDTH 12.5 % (11.5-14.5)
[2022-12-28 05:49] LABS: CARBON DIOXIDE 22.9 mmol/L (20.0-32)
--- NOTE | 2022-12-28 06:30 | NUR ---
BEDSIDE REPORT BEDSIDE REPORT RECEIVED FROM John ADAN LVN. ASSUMED CARE OF PATIENT.
[2022-12-28 07:00] VITALS: BP 125/68; PULSE 73; RESP 18; TEMP 97.9; O2SAT 93
[2022-12-28] MEDS: ASPIRIN EC PO SCH (08:24)
[2022-12-28] MEDS: TYLENOL PO PRN (08:24)
--- NOTE | 2022-12-28 10:59 | PRM.DC ---
ENOC VERDUGO MD Dec 28, 2022 10:59
[2022-12-28] MEDS ORDERED: NS 1000ML 1,000 ML IV ONE (11:00)
--- NOTE | 2022-12-28 11:50 | NUR ---
CM, DISCHARGE PLANNING CM VISITED WITH PATIENT REGARDING DISCHARGE PLAN AND NEED. SPOUSE AND DAUGHTER IN ROOM. PATIENT LIVES AT HOME WITH SPOUSE, IS INDEPENDENT WITH ADLS, HAS CPAP AT HOME. PCP GAUDENCIO LEAVITT [facility]. DENIES DISCHARGE NEEDS, FOLLOW UP MADE WITH PCP GAUDENCIO LEAVITT FOR 01/06/23 AT 1:40. PER PATIENT AND SPOUSE PATIENT HAS FOLLOW UP WITH DR GARCIA Wednesday12/30/22AT 1:00. GOAL IS FOR PATIENT TO RETURN HOME WITH SPOUSE FOR ROUTINE SELF CARE. CM WILL CONTINUE TO FOLLOW FOR FURTHER DISCHARGE NEEDS.
--- NOTE | 2022-12-28 12:45 | NUR ---
DC IV DCD. TIP INTACT
--- NOTE | 2022-12-28 13:25 | NUR ---
DISCHARGE DISCHARGE INSTRUCTIONS GIVEN TO PATIENT AND SPOUSE. NO QUESTIONS AT THIS TIME. PATIENT TAKEN VIA W/C TO DAUGHTERS VEHICLE WITH ALL BELONGINGS BY JESSICA CALLAHAN. RELINQUISHED CARE OF PATIENT.
== END 2022-12-28 13:25 | disposition home or self-care (01) ==
LOC: ER 18:49 → MS 21:31
PROVIDERS: ADMIT Hospitalist; ATTEND Hospitalist
DX: N13.6 Pyonephrosis (principal); N35.919 Unspecified urethral stricture, male, unspecified site; N40.1 Benign prostatic hyperplasia with lower urinary tract symptoms; N13.8 Other obstructive and reflux uropathy; N17.9 Acute kidney failure, unspecified; I10 Essential (primary) hypertension; K21.9 Gastro-esophageal reflux disease without esophagitis; E78.5 Hyperlipidemia, unspecified; E78.00 Pure hypercholesterolemia, unspecified; Z79.82 Long term (current) use of aspirin; Z79.899 Other long term (current) drug therapy
CPT/HCPCS: 96365; 96375 ×2; 99285; 87086; 74176; 80053; 85025 ×3; 36415 ×3; 81001; 85610; 85730; 52332; 96366; 80048 ×2; G0378 ×4; J7030 ×4; J0696 ×3; J1885 ×2; C1894; C1769 ×2; C1758; J1100; J3490 ×3; J1956; J2001; J2405; J3010; Q9965; 76000

== ENCOUNTER 2022-12-28 16:12 | Emergency (ER) | payer MEDICARE ==
[~2022-12-28] VITALS: Ht 170.2 cm; Wt 79.4 kg
[~2022-12-28 16:12] MED LIST changes: +VITA25006 PO
[2022-12-28 17:40] VITALS: BP 155/80; PULSE 85; RESP 18; TEMP 98.4; O2SAT 95
--- NOTE | 2022-12-28 17:40 | NUR ---
ARRIVAL PATIENT ARRIVED TO ED3 AMBULATORY, C/O VO CATHETER LEAKING FOR THE PAST HOUR, CAME TO THE ED FOR EVAL, VITAL SIGNS TAKEN AND DOCTOR NOTIFIED OF PATIENT'S ARRIVAL.
--- NOTE | 2022-12-28 18:28 | NUR ---
RADHA CARLSON ON THE PHONE WITH DR GARCIA
[2022-12-28] MEDS ORDERED: WATER ONE ×2 (18:40→18:46)
[2022-12-28 18:50] VITALS: BP 141/79; PULSE 87; RESP 18; TEMP 98.4; O2SAT 95
--- NOTE | 2022-12-28 18:50 | NUR ---
VO VO CATHETER IRRIGATED AT THIS TIME. SMALL AMOUNT OF SEDIMENT NOTED. VO CATHETER DRAINING WELL. DR WATSON NOTIFIED.
--- NOTE | 2022-12-28 19:01 | ER.PDOC ---
General Chief Complaint: Male Stated Complaint: MALE Time seen by MD: 18:57 Source: patient Exam Limitations: no limitations History of Present Illness Initial Comments Urine leaking around Salguero catheter this afternoon even though it is draining well. Timing/Duration: this afternoon Sexual History: Non-contributory Allergies: Coded Allergies: No Known Allergies (Unverified , 06/04/21) Home Meds Reported Medications Loratadine (CLARITIN) 10 Mg Tablet, 10 MG PO DAILY24, TAB 12/26/22 Vitamin D3/Folic Acid (Noxifol-D3 2,500 Unit-1 mg Tab) 2,500 Unit-1 Mg Tablet, 1000 UNIT PO DAILY24, TAB 12/26/22 Aspirin (ASPIRIN) 81 Mg Tab.chew, 1 TAB PO DAILY, #30 TAB 3 Refills 06/04/21 Atorvastatin 20MG (LIPITOR 20MG) 20 Mg Tablet, 1 TAB PO DAILY, #90 TAB 1 Refill 06/04/21 Ezetimibe (ZETIA) 10 Mg Tablet, 10 MG PO DAILY, TABLET 10/15/14 Ramipril 10MG (ALTACE 10MG) 10 Mg Capsule, 10 MG PO DAILY24, CAPSULE 10/15/14 Discontinued Reported Medications Tramadol Hcl (ULTRAM) 50 Mg Tablet, 1-2 TAB PO TIWP PRN for pain MDD 2 Tablet(s) for 30 Days, #25 TAB 1 Refill 06/11/21 Multivitamin (DAILY VITAMIN FORMULA) 1 Each Tablet, 1 TAB PO QD for 30 Days, #30 TAB 0 Refills 06/04/21 Amlodipine Besylate (AMLODIPINE BESYLATE) 5 Mg Tablet, 1 TAB PO DAILY, #30 TAB 5 Refills 06/04/21 [Osteo Move] No Conflict Check, 1 TAB PO DAILY24 06/04/21 Loratadine (CLARITIN) 10 Mg Tablet, 1 TAB PO QD for allergy symptoms for 30 Days, #30 TAB 0 Refills 06/04/21 Cholecalciferol (Vitamin D3) (VITAMIN D3) 5,000 Unit Tablet, 1 TAB PO DAILY, #30 TAB 3 Refills 10/15/14 Past Medical History Medical History: high cholesterol, hypertension Surgical History: knee Family History Significant Family History: no pertinent family hx Social History Smoking: non-smoker Alcohol Use: none Drug Use: none Review of Systems Constitutional: no symptoms reported EENTM: no symptoms reported Respiratory: no symptoms reported Cardiovascular: no symptoms reported Gastrointestinal: no symptoms reported Genitourinary: see HPI All Other Systems: Reviewed and Negative Physical Exam General Appearance: No Apparent Distress, WD/WN Neck: nml inspection, non-tender Cardiovascular/Respiratory: Regular Rate, Rhythm, No M/R/G, Normal Peripheral Pulses, No JVD, Normal Breath Sounds, No Respiratory Distress Abdomen: Normal Bowel Sounds, Non Tender, Soft, No Organomegaly, No Pulsatile Mass Back: nml inspection Extremities: Normal Range of Motion, Non-Tender, Normal Inspection, No Pedal Edema, No Calf Tenderness, Normal Capillary Refill Neurologic/Psychiatric: pulmonologist intensivist II-XII NML as Tested, No Motor/Sensory Deficits, Alert, Normal Mood/Affect, Oriented x 3 Skin: Normal Color, Warm/Dry Lymphatic: No Adenopathy Results/Orders Results/Orders Orders - ALDO WATSON MD Water For Irrigation,Sterile (Water) (12/28/22 18:40) Water For Irrigation,Sterile (Water) (12/28/22 18:46) Vital Signs Date Time Temp Pulse Resp B/P (MAP) Pulse Ox O2 Delivery O2 Flow Rate FiO2 12/28/22 17:40 98.4 85 18 155/80 (105) 95 Room Air* 0 21 12/28/22 17:40 98.4 85 18 95 12/28/22 17:40 98.4 85 18 Progress Progress I consulted Dr. Keenan who told me that the Salguero catheter should be irrigated and not to remove it. Patient will follow-up with him in his office tomorrow at 10am. Salguero catheter irrigated with good clean urine draining out. ER DEPART Departure Time of Disposition: 19:00 Disposition: 01 HOME / SELF CARE / HOMELESS Impression: Primary Impression: Salguero catheter problem Condition: Improved Referrals: KYRA DUBOIS MD (PCP) PRIMARY CARE PROVIDER Additional Instructions: Follow-up with Dr. Keenan tomorrow at 10am in his office Return to ED if any concerns Duration or Time Spent with Pa: 10 min Problem Qualifiers Primary Impression: Salguero catheter problem Encounter type: initial encounter Qualified Codes: T83.9XXA - Unspecified complication of genitourinary prosthetic device, implant and graft, initial encounter ALDO WATSON MD Dec 28, 2022 19:01
== END 2022-12-28 19:05 | disposition home or self-care (01) ==
LOC: ER 16:12
DX: T83.038A Leakage of other urinary catheter, initial encounter (principal); E78.00 Pure hypercholesterolemia, unspecified; I10 Essential (primary) hypertension; Y84.6 Urinary catheterization as the cause of abnormal reaction of the patient, or of later complication, without mention of misadventure at the time of the procedure; Y92.89 Other specified places as the place of occurrence of the external cause
CPT/HCPCS: 99281

== ENCOUNTER 2023-01-06 07:39 | Day surgery (SDC) | payer MEDICARE ==
[~2023-01-06] VITALS: Ht 170.2 cm; Wt 79.4 kg
[2023-01-06] VITALS (10 sets, daily range): BP systolic 117–139; BP diastolic 78–102; PULSE 75–94; RESP 16–18; TEMP 97.4–98.9; O2SAT 92–98
[2023-01-06 08:00] LABS: BASOPHIL % 0.6 % (0.0-0.2); EOSINOPHIL # 0.3 10^3/uL (0.0-0.2); EOSINOPHIL % 4.2 % (0.0-5.0); HEMATOCRIT(ML) 45.7 % (37.0-53.0); HEMOGLOBIN 15.3 g/dL (13.9-16.3); LYMPHOCYTES # 1.83 10^3/uL1 (1.0-4.8); LYMPHOCYTES % 26.4 % (24.0-44.0); MEAN CORP HGB 31.3 pg (26-34); MEAN CORP HGB CONCENTRATION 33.5 g/dL (33-36.5); MEAN CORP VOLUME 93.5 fL (78-100); MONOCYTES # 0.6 10^3/uL (0.3-0.8); MONOCYTES % 8.2 % (5.0-12.0); NEUTROPHIL # 4.1 10^3/uL (1.8-7.7); NEUTROPHILS % 59.6 % (41.0-85.0); RED BLOOD CELL 4.89 10^6/uL (4.50-5.90); RED CELL DISTRIBUTION WIDTH 12.2 % (11.5-14.5); WHITE BLOOD CELL 6.9 10^3/uL (4.5-11.0)
[2023-01-06 08:02] LABS: BILIRUBIN,URINE NEGATIVE (NEGATIVE); LEUKOCYTE ESTERASE ,URINE 1+ (NEGATIVE); NITRATE,URINE NEGATIVE (NEGATIVE); UROBILINOGEN,URINE 0.2 E.U./dL (0.2)
[2023-01-06 08:03] LABS: APPEARANCE,URINE HAZY; UA COLOR YELLOW
[2023-01-06 08:14] LABS: PROTHROMBIN PROTIME 10.4 SEC (9.7-11.6)
[2023-01-06 08:15] LABS: ALBUMIN(ML) 3.6 g/dL (3.4-5.0); ALBUMIN/GLOBULIN RATIO 0.947; ANION GAP 10.5; CALCIUM 9.3 mg/dL (8.4-10.5); CARBON DIOXIDE 28.6 mmol/L (20.0-32); CREATININE SERUM 1.39 mg/dL (0.59-1.40); POTASSIUM 4.1 mmol/L (3.6-5.2)
[2023-01-06] MEDS ORDERED: NS 1000ML 1,000 ML ONE (08:40)
[2023-01-06] MEDS ORDERED: LEVAQUIN 100 ML IV ONE ×2 (08:58→09:30)
[2023-01-06] MEDS ORDERED: NS 1000ML 1,000 ML IV SCH (09:00)
[2023-01-06] MEDS ORDERED: NS 3000ML IRR IR ONE (10:07)
[2023-01-06] MEDS ORDERED: SODIUM CHLORIDE IRR BOTTLE IR ONE (10:08)
[2023-01-06] MEDS ORDERED: XYLOCAINE 2% 5ML VIAL ONE (10:19)
[2023-01-06] MEDS ORDERED: TORADOL ONE (10:19)
[2023-01-06] MEDS ORDERED: ZOFRAN ONE (10:19)
[2023-01-06] MEDS ORDERED: SUBLIMAZE ONE (10:19)
[2023-01-06] MEDS ORDERED: DIPRIVAN IV ONE (10:19)
[2023-01-06] MEDS ORDERED: DECADRON ONE (10:19)
[2023-01-06] MEDS ORDERED: TAMS-14 PO (11:29)
[2023-01-06] MEDS ORDERED: TRAM50TA PO (11:29)
[2023-01-06] MEDS ORDERED: CIPR500T86 PO (11:29)
[2023-01-06] MEDS ORDERED: LACTATED RINGERS 1,000 ML IV SCH (11:30)
== END 2023-01-06 12:12 | disposition home or self-care (01) ==
LOC: ER 07:39 → SDC 08:24
PROVIDERS: ATTEND Urology
DX: N20.1 Calculus of ureter (principal); N40.1 Benign prostatic hyperplasia with lower urinary tract symptoms; N35.819 Other urethral stricture, male, unspecified site; I10 Essential (primary) hypertension; E78.00 Pure hypercholesterolemia, unspecified; G47.30 Sleep apnea, unspecified; E55.9 Vitamin D deficiency, unspecified; M19.90 Unspecified osteoarthritis, unspecified site; Z82.49 Family history of ischemic heart disease and other diseases of the circulatory system; Z80.3 Family history of malignant neoplasm of breast; Z79.01 Long term (current) use of anticoagulants; Z79.899 Other long term (current) drug therapy; Z79.82 Long term (current) use of aspirin
CPT/HCPCS: 52351; 99285; 74176; 87086; 80053; 85025; 36415; 81001; 85610; 85730; J7030; A4217 ×2; C1894; C1769; J1100; J3490; J1956 ×2; J2001; J2405; J1885; J3010; 76000

== ENCOUNTER → 2024-03-08 | Outpatient (CLI) | payer MEDICARE ==
[~2024-03-08] MED LIST changes: +CIPR500T86 PO; -EZET10TA20 PO; +EZET10TA81 PO; +TAMS-14 PO; +TRAM50TA PO
== END | disposition home or self-care (01) ==
LOC: RAD 09:36
PROVIDERS: ATTEND Student in an Organized Health Care Education/Training Program
DX: N28.1 Cyst of kidney, acquired (principal); N20.0 Calculus of kidney
CPT/HCPCS: 76770

== ENCOUNTER → 2024-08-24 | Outpatient (CLI) | payer MEDICARE | END | disposition home or self-care (01) | LOC: RAD 09:28 | PROVIDERS: ATTEND Specialist | DX: R06.00 Dyspnea, unspecified (principal); R55 Syncope and collapse; R06.02 Shortness of breath; I11.9 Hypertensive heart disease without heart failure; E78.5 Hyperlipidemia, unspecified; N40.0 Benign prostatic hyperplasia without lower urinary tract symptoms; Z82.49 Family history of ischemic heart disease and other diseases of the circulatory system | CPT/HCPCS: 78452; 93306; J2785; A9500 ==

== ENCOUNTER 2024-11-28 07:00 | Day surgery (SDC) | payer MEDICARE ==
[2024-11-21] MEDS: MOVIPREP POWDER PACKET PO STA (14:02)
[2024-11-21 14:13] VITALS: BP 113/74; PULSE 84; RESP 18; TEMP 97.1; O2SAT 94
[2024-11-21 15:01] LABS: BASOPHIL # 0.0 10^3/uL (0.0-0.1); BASOPHIL % 0.3 % (0.2-1.2); EOSINOPHIL # 0.1 10^3/uL (0.0-0.2); EOSINOPHIL % 1.7 % (0.0-5.0); HEMATOCRIT(ML) 47.0 % (37.0-53.0); IG % 0.30 % (0.00-0.50); LYMPHOCYTES # 1.98 10^3/uL1 (1.0-4.8); LYMPHOCYTES % 28.0 % (24.0-44.0); MEAN CORP HGB 32.3 pg (26-34); MEAN CORP HGB CONCENTRATION 34.3 g/dL (33-36.5); MEAN CORP VOLUME 94.2 fL (78-100); MONOCYTES # 0.6 10^3/uL (0.3-0.8); MONOCYTES % 8.6 % (5.0-12.0); NEUTROPHIL # 4.3 10^3/uL (1.8-7.7); NEUTROPHILS % 61.1 % (41.0-85.0); RED BLOOD CELL 4.99 10^6/uL (4.50-5.90); RED CELL DISTRIBUTION WIDTH 12.6 % (11.5-14.5); WHITE BLOOD CELL 7.1 10^3/uL (4.5-11.0)
[2024-11-21 15:27] LABS: ALANINE AMINOTRANSFERASE(ML) 31.0 U/L (12-78); ALBUMIN(ML) 3.9 g/dL (3.4-5.0); CREATININE SERUM 1.17 mg/dL (0.59-1.40); EST GFR, NON-AA 60.6 (>/=60)
[2024-11-21 15:31] LABS: INR 1.0; PROTHROMBIN PROTIME 9.9 SEC (9.3-11.6)
[~2024-11-28] VITALS: Ht 170.2 cm; Wt 77.1 kg
[~2024-11-28 07:00] MED LIST changes: +CALC500T52 PO; +DOCU-123 PO; +FINA5TAB4 PO; +MULT-129 PO; +NS 1000ML 1,000 ML ONE; -TAMS-14 PO; +TAMS-54 PO
[2024-11-28 07:10] VITALS: BP 137/82; PULSE 67; RESP 16; TEMP 97; O2SAT 95
[2024-11-28] MEDS ORDERED: WATER ONE (07:20)
[2024-11-28] MEDS: NS 1000ML 1,000 ML IV SCH (07:20)
[2024-11-28] MEDS ORDERED: DIPRIVAN IV ONE (07:54)
[2024-11-28] MEDS ORDERED: XYLOCAINE 2% 5ML VIAL ONE (07:54)
[2024-11-28 08:09] VITALS: TEMP 97.9
[2024-11-28 08:37] VITALS: BP 108/52; PULSE 64; RESP 14; TEMP 96.2; O2SAT 96
[2024-11-28 08:50] VITALS: BP 121/80; PULSE 68; RESP 14; TEMP 97.9; O2SAT 96
[2024-11-28 09:05] VITALS: BP 119/77; PULSE 67; RESP 14; O2SAT 96
== END 2024-11-28 09:38 | disposition home or self-care (01) ==
LOC: SDC 07:00
PROVIDERS: ATTEND Surgery
DX: Z12.11 Encounter for screening for malignant neoplasm of colon (principal); K29.70 Gastritis, unspecified, without bleeding; K57.30 Diverticulosis of large intestine without perforation or abscess without bleeding; K31.89 Other diseases of stomach and duodenum; M19.90 Unspecified osteoarthritis, unspecified site; E78.5 Hyperlipidemia, unspecified; I10 Essential (primary) hypertension; G47.33 Obstructive sleep apnea (adult) (pediatric); K21.9 Gastro-esophageal reflux disease without esophagitis; Z79.82 Long term (current) use of aspirin; Z98.890 Other specified postprocedural states; Z88.8 Allergy status to other drugs, medicaments and biological substances; Z79.899 Other long term (current) drug therapy
CPT/HCPCS: 80053; 85025; 36415; 85610; 85730; 45380; 43239; 88305; J7030 ×2; A4217; J2704; J2003

== ENCOUNTER → 2024-12-08 | Day surgery (SDC) | payer MEDICARE ==
[2024-12-07 10:19] VITALS: BP 121/69; PULSE 64; RESP 18; TEMP 97.4; O2SAT 95
[2024-12-07 10:56] LABS: BASOPHIL # 0.0 10^3/uL (0.0-0.1); BASOPHIL % 0.5 % (0.2-1.2); EOSINOPHIL # 0.1 10^3/uL (0.0-0.2); EOSINOPHIL % 2.0 % (0.0-5.0); HEMATOCRIT(ML) 48.5 % (37.0-53.0); IG % 0.30 % (0.00-0.50); LYMPHOCYTES # 1.71 10^3/uL1 (1.0-4.8); LYMPHOCYTES % 26.2 % (24.0-44.0); MEAN CORP HGB 32.2 pg (26-34); MEAN CORP HGB CONCENTRATION 33.4 g/dL (33-36.5); MEAN CORP VOLUME 96.4 fL (78-100); MONOCYTES # 0.5 10^3/uL (0.3-0.8); MONOCYTES % 8.0 % (5.0-12.0); NEUTROPHIL # 4.1 10^3/uL (1.8-7.7); NEUTROPHILS % 63.0 % (41.0-85.0); RED BLOOD CELL 5.03 10^6/uL (4.50-5.90); RED CELL DISTRIBUTION WIDTH 12.8 % (11.5-14.5); WHITE BLOOD CELL 6.5 10^3/uL (4.5-11.0)
[2024-12-07 11:14] LABS: ALANINE AMINOTRANSFERASE(ML) 30.0 U/L (12-78); ALBUMIN(ML) 3.9 g/dL (3.4-5.0); CREATININE SERUM 1.07 mg/dL (0.59-1.40); EST GFR, NON-AA 67.2 (>/=60)
[~2024-12-08] VITALS: Ht 170.2 cm; Wt 77.1 kg
[~2024-12-08] MED LIST changes: -NS 1000ML 1,000 ML ONE; +SUBLIMAZE 100MCG/2ML ONE; +VERSED ONE
[2024-12-08 07:15] VITALS: BP 121/78; PULSE 65; RESP 18; TEMP 97.2; O2SAT 95
[2024-12-08] MEDS: NS 1000ML 1,000 ML IV SCH (07:25)
[2024-12-08 10:10] VITALS: BP 134/74; PULSE 73; RESP 18; TEMP 97.4; O2SAT 96
[2024-12-08 10:25] VITALS: BP 109/76; PULSE 68; RESP 18; O2SAT 96
[2024-12-08 10:40] VITALS: BP 134/80; PULSE 69; RESP 18; O2SAT 94
== END | disposition home or self-care (01) ==
LOC: SDC 07:05
PROVIDERS: ATTEND Specialist
DX: R42 Dizziness and giddiness (principal); I47.10 Supraventricular tachycardia, unspecified; I48.0 Paroxysmal atrial fibrillation; I11.9 Hypertensive heart disease without heart failure; E78.5 Hyperlipidemia, unspecified; G47.33 Obstructive sleep apnea (adult) (pediatric); M19.90 Unspecified osteoarthritis, unspecified site; Z98.890 Other specified postprocedural states; Z88.8 Allergy status to other drugs, medicaments and biological substances; Z79.899 Other long term (current) drug therapy
CPT/HCPCS: 80053; 85025; 36415; 33285; A4649; J2250; J3010; C1764; 99152

== ENCOUNTER → 2025-01-03 | Outpatient (CLI) | payer MEDICARE ==
[~2025-01-03] MED LIST changes: -SUBLIMAZE 100MCG/2ML ONE; -VERSED ONE
== END | disposition home or self-care (01) ==
LOC: RAD 13:50
PROVIDERS: ATTEND Orthopaedic Surgery
DX: M17.11 Unilateral primary osteoarthritis, right knee (principal)
CPT/HCPCS: 73562-RT